=== PATIENT | male | born 1935 | race Caucasian/White ===

== ENCOUNTER 2017-01-15 14:18 | Emergency (ER) | payer MEDICARE, BC ==
[~2017-01-15] VITALS: Ht 182.9 cm; Wt 77.1 kg
[~2017-01-15 14:18] MED LIST: AMLO1TAB2 PO; ASCO100T6 PO; ASP81TEC PO; BIOT25006 PO; BIOT5TAB PO; CALC1TAB38 PO; CIPR500T78 PO; GABA600T2 PO; GLUC500C2 PO; HYDR1TAB86 PO; INSU100C SQ; LEVO88TA26 PO; LOSA1TAB23 PO; MAGN200T3 PO; MELA1TAB11 PO; MTP50T PO; MULT-608 PO; OMEG1CAP51 PO; PHEN200T27 PO; SAW160CA9 PO; THIO50CA PO; VIT1CAPS16 PO; ZINC50TA49 PO; fentaNYL INJECTION 100 MCG/2 ML AMP ONE
[2017-01-15] MEDS: fentaNYL INJECTION 100 MCG/2 ML AMP IVP PRN ×6 (14:26→15:20)
--- NOTE | 2017-01-15 14:32 | ED Trauma-Multisystem ---
General Stated Complaint: FALL FROM TREE Source of Information: Patient, EMS Exam Limitations: No Limitations (CHALINO LUONG APRN) History of Present Illness Time Seen by Provider: 14:28 Initial Comments To ER per EMS from home where he was trimming trees. He sustained a fall from about 15 feet of height while trimming trees. This was an unwitnessed fall. He was able to call 911 for help however. EMS initially found to be hypoglycemic with a blood sugar of 53, blood pressure of 80s over 40 and a heart rate of 40. He was very diaphoretic (the outdoor temperature is 93 degrees however). He was placed in a rigid cervical collar, given one amp of D50, loaded onto spine board and brought to the emergency room. Upon arrival to ER blood pressure 147/75, heart rate 65 sinus, alert and oriented and he complains of severe pain to his left shoulder. Occurred: Just Prior to Arrival Severity: Moderate Pain/Injury Location: Head, Upper Extremity, Neck Method of Injury: Fall Modifying Factors: No Movement Loss of Consciousness: Unsure Associated Symptoms (Fall): No Abdominal Pain, No Chest Pain, No Confusion, No Dizziness, No Headache, No Neck Pain (CHALINO LUONG APRN) Allergies and Home Medications Allergies Coded Allergies: No Known Drug Allergies (Unverified , 09/08/11) Home Medications Alpha Lipoic Acid 50 Mg Capsule, 600 MG PO DAILY, (Reported) Amlodipine/Atorvast Nam 1 Each Tablet, 1 EACH PO DAILY, (Reported) Ascorbic Acid 100 Mg Tablet, 100 MG PO DAILY, (Reported) Aspirin 81 Mg Tabec, 81 MG PO DAILY, (Reported) Biotin 5 Mg Tablet, 5 MG PO DAILY, (Reported) Calcium Citrate/Vitamin D3 1 Each Tablet, 1 EACH PO DAILY, (Reported) Gabapentin 600 Mg Tablet, 600 MG PO DAILY, (Reported) Glucosamine Sulfate 500 Mg Capsule, 500 MG PO DAILY, (Reported) Insulin Human Lispro 100 U/Ml Cartridge, 35-40 SQ DAILY, (Reported) 34-40 UNITS PER PUMP Levothyroxine Sodium 88 Mcg Tablet, 88 MCG PO DAILY, (Reported) Losartan/Hydrochlorothiazide 1 Each Tablet, 1 EACH PO DAILY, (Reported) Magnesium 200 Mg Tablet, 400 MG PO DAILY, (Reported) Metoprolol Tartrate 50 Mg Tablet, 50 MG PO DAILY, (Reported) Multivitamins 1 Tab Tablet, 1 TAB PO DAILY, (Reported) [place]-3 Fatty Acids/Fish Oil 1 Each Capsule, 1,000 MG PO DAILY, (Reported) Pyridoxine/Melatonin 1 Tab Tablet, 3 MG PO HS, (Reported) Saw [place] Xtr/Zinc Picolin 1 Each Capsule, 2 EACH PO DAILY, (Reported) Vit B12/Fa/Pyridoxine Hcl/Aa15 1 Each Capsule, 1 EACH PO, (Reported) Zinc Amino Acid Chelate 50 Mg Tablet, 50 MG PO DAILY, (Reported) Constitutional: see HPI Eyes: No Symptoms Reported Ears: No Symptoms Reported Nose: No Symptoms Reported Mouth: No Symptoms Reported Throat: No Symptoms to Report Respiratory: no symptoms reported Genitourinary: no symptoms reported Musculoskeletal: see HPI Skin: no symptoms reported Psychiatric/Neurological: No Symptoms Reported (CHALINO LUONG APRN) Past Lkjfixu-Kskexi-Bpdpps Hx Immunizations Up To Date Tetanus Booster (TDap): Less than 5yrs PED Vaccines UTD: No Date of Pneumonia Vaccine: Dec 13, 2010 (CHALINO LUONG APRN) Surgeries HX Surgeries: Yes (CHALINO LUONG APRN) Respiratory Hx Respiratory Disorders: No (CHALINO LUONG APRN) Cardiovascular Hx Cardiac Disorders: No (CHALINO LUONG APRN) Neurological Hx Neurological Disorders: No (CHALINO LUONG APRN) Reproductive System Hx Reproductive Disorders: No Sexually Transmitted Disease: No (CHALINO LUONG APRN) Genitourinary Hx Genitourinary Disorders: Yes (RIGHT RENAL TRAUMA) (CHALINO LUONG APRN) Gastrointestinal Hx Gastrointestinal Disorders: No (CHALINO LUONG APRN) Musculoskeletal Hx Musculoskeletal Disorders: No (CHALINO LUONG APRN) Endocrine Hx Endocrine Disorders: Yes Endocrine Disorders: Diabetes, Insulin dep, Hypothyroidsim (CHALINO LUONG APRN) HEENT HX ENT Disorders: Yes HEENT Disorders: Cataract (CHALINO LUONG APRN) Cancer Hx Cancer: No (CHALINO LUONG APRN) Psychosocial Hx Psychiatric Problems: No (CHALINO LUONG APRN) Integumentary HX Skin/Integumentary Disorder: No (CHALINO LUONG APRN) Blood Transfusions Hx Blood Disorders: No Adverse Reaction to a Blood Tr: No (CHALINO LUONG APRN) Family Medical History Family Medial History: Chest pain Family history: Alzheimer's disease 03 MOTHER, Onset:60 years & older Family history: Cardiovascular disease 03 FATHER (father heart attack at 85) 03 MOTHER (pacemaker at 75) Family history: Hypertension 03 FATHER (80) Myocardial infarction 03 FATHER ( at 85 with heart attack) (CHALINO LUONG APRN) Family Medial History: Chest pain Family history: Alzheimer's disease 03 MOTHER, Onset:60 years & older Family history: Cardiovascular disease 03 FATHER (father heart attack at 85) 03 MOTHER (pacemaker at 75) Family history: Hypertension 03 FATHER (80) Myocardial infarction 03 FATHER ( at 85 with heart attack) (PATRICIA GILL) Physical Exam General Appearance: No Apparent Distress, WD/WN, Moderate Distress (moaning in pain secondary to left shoulder pain.) Head: No Evidence of Injury, Other (abrasions to the left side of the forehead and left cheek. External auditory canals are normal in appearance without blood. There is no hemotympanum noted. There are no leos signs. He is in a rigid cervical collar. Denies neck pack upon palpation but reports tingling in both hands. ) Eyes: Bilateral Eye EOMI, Bilateral Eye Normal Inspection, Bilateral Eye PERRL Ears, Nose, Throat: Hearing Grossly Normal, Other (ecchymosis to left side of the forehead and cheek) Neck: Full Range of Motion, Normal Inspection, Other (he is in a rigid cervical collar but upon palpation does not report any midline cervical spine pain.) Cardiovascular: Regular Rate, Rhythm, Normal Peripheral Pulses Respiratory: No Accessory Muscle Use, No Respiratory Distress, Other (lungs sounds are slightly diminished on the left, left lateral chest wall is tender to palpation) Gastrointestinal: Normal Bowel Sounds, Non Tender, Soft Extremity: Other (moves all extremities) Neurologic/Psychiatric: Alert, Oriented x3, Other (moaning but alert and oriented to person place time and situation. GCS 15.) Skin: Normal Color, Ecchymosis (CHALINO LUONG APRN) Longs Coma Score Best Eye Response (Roselyn): (4) Open Spontaneously Best Verbal Response (Rsoelyn): (5) Oriented Best Motor Response (Longs): (6) Obeys Commands Longs Total: 15 (CHALINO LUONG APRN) Progress/Results/Core Measures Results/Orders Lab Results Laboratory Tests Test 7/10/17 14:30 Range/Units White Blood Count 7.2 4.3-11.0 10^3/uL Red Blood Count 3.49 L 4.35-5.85 10^6/uL Hemoglobin 10.9 L 13.3-17.7 G/DL Hematocrit 32 L 40-54 % Mean Corpuscular Volume 93 80-99 FL Mean Corpuscular Hemoglobin 31 25-34 PG Mean Corpuscular Hemoglobin Concent 34 32-36 G/DL Red Cell Distribution Width 13.4 10.0-14.5 % Platelet Count 166 130-400 10^3/uL Mean Platelet Volume 9.9 7.4-10.4 FL Prothrombin Time 14.1 12.2-14.7 SEC INR Comment 1.1 0.8-1.4 Activated Partial Thromboplast Time 24 24-35 SEC Sodium Level 139 135-145 MMOL/L Potassium Level 4.3 3.6-5.0 MMOL/L Chloride Level 106 98-107 MMOL/L Carbon Dioxide Level 26 21-32 MMOL/L Anion Gap 7 5-14 MMOL/L Blood Urea Nitrogen 31 H 7-18 MG/DL Creatinine 1.09 0.60-1.30 MG/DL Estimat Glomerular Filtration Rate > 60 BUN/Creatinine Ratio 28 Glucose Level 231 H 70-105 MG/DL Calcium Level 8.6 8.5-10.1 MG/DL Total Bilirubin 0.5 0.1-1.0 MG/DL Direct Bilirubin 0.1 0.0-0.3 MG/DL Indirect Bilirubin 0.4 MG/DL Aspartate Amino Transf (AST/SGOT) 36 H 5-34 U/L Alanine Aminotransferase (ALT/SGPT) 31 0-55 U/L Alkaline Phosphatase 41 40-136 U/L Total Protein 5.5 L 6.4-8.2 GM/DL Albumin 3.3 3.2-4.5 GM/DL (PATRICIA GILL) My Orders Orders - PATRICIA GILL Fentanyl Injection (Sublimaze Injection (01/15/17 14:18) Fentanyl Injection (Sublimaze Injection (01/15/17 15:00) Fentanyl Injection (Sublimaze Injection (01/15/17 15:15) (PATRICIA GILL) Medications Given in ED Current Medications Medications Dose Ordered Sig/German Route Start Time Stop Time Status Last Admin Dose Admin Diphtheria/ Tetanus/Acell Pertussis 0.5 ml ONCE ONCE IM 01/15/17 15:30 01/15/17 15:31 DC 01/15/17 15:28 0.5 ML Fentanyl Citrate 50 mcg PRN PRN IVP 01/15/17 15:00 01/15/17 15:20 25 MCG (PATRICIA GILL) Progress Note : Time: 15:38 Progress Note I saw and examined patient alongside his headaches. I agree with his assessment and his plan of care to include transfer to a facility where he would have access neurosurgery. (PATRICIA GILL) Departure Communication Progress Notes After discussing with Dr. Apple and Dr. Owen. Patient will be transferred to [facility] in [place]. Emergency room Dr. Carter has accepted. (CHALINO LUONG APRN) Impression Impression: Primary Impression: C1 cervical fracture Additional Impression: Blunt trauma of multiple sites Disposition: 02 XFER SHT-TRM HOSP Condition: Critical Departure-Patient Inst. Referrals: VERENA DAVIS MD (PCP/Family) Primary Care Physician CHALINO LUONG APRN Jan 15, 2017 14:31 PATRICIA GILL Jan 15, 2017 15:38
[2017-01-15 14:40] LABS: MEAN PLATELET VOLUME 9.9 FL (7.4-10.4); RED BLOOD COUNT 3.49 10^6/uL (4.35-5.85); RED CELL DISTRIBUTION WIDTH 13.4 % (10.0-14.5); WHITE BLOOD COUNT 7.2 10^3/uL (4.3-11.0)
[2017-01-15] MEDS ORDERED: fentaNYL INJECTION 100 MCG/2 ML AMP ONE (14:42)
--- NOTE | 2017-01-15 14:42 | Diagnostic Imaging Report ---
EXAMINATION: Supine AP view of the chest. INDICATION: Fall. FINDINGS: There is mild interstitial thickening, favored to be chronic. No focal airspace opacity. The heart size is normal. No effusion or pneumothorax. The mediastinum and jose appear unremarkable. IMPRESSION: No acute process. Dictated by: Dictated on workstation # [id number]
--- NOTE | 2017-01-15 14:44 | Diagnostic Imaging Report ---
INDICATION: Pelvic pain post fall. AP pelvis obtained at 2:32 p.m. No fracture or acute bony abnormality is seen. IMPRESSION: Negative pelvis. Dictated by: Dictated on workstation # [id number]
[2017-01-15 14:58] LABS: ALANINE AMINOTRANSFERASE 31 U/L (0-55); ALBUMIN 3.3 GM/DL (3.2-4.5); ANION GAP 7 MMOL/L (5-14); ASPARTATE AMINO TRANSFERASE 36 U/L (5-34); BILIRUBIN,DIRECT 0.1 MG/DL (0.0-0.3); BILIRUBIN,INDIRECT 0.4 MG/DL; BILIRUBIN,TOTAL 0.5 MG/DL (0.1-1.0); BLOOD UREA NITROGEN 31 MG/DL (7-18); BUN/CREATININE RATIO 28; CALCIUM 8.6 MG/DL (8.5-10.1); CARBON DIOXIDE 26 MMOL/L (21-32); CHLORIDE 106 MMOL/L (98-107); CREATININE SERUM 1.09 MG/DL (0.60-1.30); GFR ESTIMATED > 60; GLUCOSE 231 MG/DL (70-105); POTASSIUM 4.3 MMOL/L (3.6-5.0); SODIUM 139 MMOL/L (135-145); TOTAL PROTEIN 5.5 GM/DL (6.4-8.2)
[2017-01-15 15:08] LABS: INR 1.1 (0.8-1.4); PROTHROMBIN TIME PATIENT 14.1 SEC (12.2-14.7)
[2017-01-15] MEDS ORDERED: fentaNYL INJECTION 100 MCG/2 ML AMP IVP PRN (15:15)
--- NOTE | 2017-01-15 15:25 | Diagnostic Imaging Report ---
TECHNIQUE: Two views of the left shoulder. INDICATION: Trauma. FINDINGS: There are multiple minimally displaced lateral upper left rib fractures seen. There is cortical irregularity along the lower aspect of the left scapula which, in correlation with the CT scan, is confirmed to be a nondisplaced fracture. The upper aspect of the scapula as well as the acromioclavicular and glenohumeral joints appear unremarkable. IMPRESSION: Fractures of multiple upper lateral left ribs and the lower aspect of the left scapula with no significant displacement. Dictated by: Dictated on workstation # [id number]
--- NOTE | 2017-01-15 15:27 | Consultation ---
History of Present Illness History of Present Illness Patient Consulted On(eulogio/time) 01/15/17 15:20 Time Seen by Provider: 14:20 History of Present Illness This is a type I trauma activation. Pt fell appx 12-15 feet off of ladder. He is unsure of LOC. Complained of pain in left shoulder and chest. Apparently family found limb on top of him. To ER per EMS from home where he was trimming trees. He sustained a fall from about 15 feet of height while trimming trees. This was an unwitnessed fall. He was able to call 911 for help however. EMS initially found to be hypoglycemic with a blood sugar of 53, hypotensive with blood pressure of 80s over 40 and a heart rate of 40. He was very diaphoretic (the outdoor temperature is 93 degrees however). He was placed in a rigid cervical collar, given one amp of D50, loaded onto spine board and brought to the emergency room. Upon arrival to ER blood pressure 147/75, heart rate 65 sinus, alert and oriented and he complains of severe pain to his left shoulder. Occurred: Just Prior to Arrival Severity: Moderate Pain/Injury Location: Head, Upper Extremity, Neck Method of Injury: Fall Modifying Factors: No Movement Loss of Consciousness: Unsure Associated Symptoms (Fall): No Abdominal Pain, No Chest Pain, No Confusion, No Dizziness, No Headache, No Neck Pain First BP in ED was 147/75. Examined and went straight to CT. CXR and Pelvis done in ED were grossly negative, no radiology reading yet. Allergies and Home Medications Allergies Coded Allergies: No Known Drug Allergies (Unverified , 09/08/11) Home Medications Alpha Lipoic Acid 50 Mg Capsule, 600 MG PO DAILY, (Reported) Amlodipine/Atorvast Nam 1 Each Tablet, 1 EACH PO DAILY, (Reported) Ascorbic Acid 100 Mg Tablet, 100 MG PO DAILY, (Reported) Aspirin 81 Mg Tabec, 81 MG PO DAILY, (Reported) Biotin 5 Mg Tablet, 5 MG PO DAILY, (Reported) Calcium Citrate/Vitamin D3 1 Each Tablet, 1 EACH PO DAILY, (Reported) Gabapentin 600 Mg Tablet, 600 MG PO DAILY, (Reported) Glucosamine Sulfate 500 Mg Capsule, 500 MG PO DAILY, (Reported) Insulin Human Lispro 100 U/Ml Cartridge, 35-40 SQ DAILY, (Reported) 34-40 UNITS PER PUMP Levothyroxine Sodium 88 Mcg Tablet, 88 MCG PO DAILY, (Reported) Losartan/Hydrochlorothiazide 1 Each Tablet, 1 EACH PO DAILY, (Reported) Magnesium 200 Mg Tablet, 400 MG PO DAILY, (Reported) Metoprolol Tartrate 50 Mg Tablet, 50 MG PO DAILY, (Reported) Multivitamins 1 Tab Tablet, 1 TAB PO DAILY, (Reported) [place]-3 Fatty Acids/Fish Oil 1 Each Capsule, 1,000 MG PO DAILY, (Reported) Pyridoxine/Melatonin 1 Tab Tablet, 3 MG PO HS, (Reported) Saw [place] Xtr/Zinc Picolin 1 Each Capsule, 2 EACH PO DAILY, (Reported) Vit B12/Fa/Pyridoxine Hcl/Aa15 1 Each Capsule, 1 EACH PO, (Reported) Zinc Amino Acid Chelate 50 Mg Tablet, 50 MG PO DAILY, (Reported) Past Lxthmnv-Holwgo-Hgyylv Hx Patient Social History Alcohol Use: Denies Use Smoking Status: Never a Smoker Recent Foreign Travel: No Contact w/Someone Who Travel: No Recent Infectious Disease Expo: No Immunizations Up To Date Tetanus Booster (TDap): Less than 5yrs PED Vaccines UTD: No Date of Pneumonia Vaccine: Dec 13, 2010 Surgeries HX Surgeries: Yes (nephrostomy tube placement, after trauma 3 yrs ago) Respiratory Hx Respiratory Disorders: No Cardiovascular Hx Cardiac Disorders: No Neurological Hx Neurological Disorders: No Reproductive System Hx Reproductive Disorders: No Sexually Transmitted Disease: No Genitourinary Hx Genitourinary Disorders: Yes (RIGHT RENAL TRAUMA) Gastrointestinal Hx Gastrointestinal Disorders: No Musculoskeletal Hx Musculoskeletal Disorders: No Endocrine Hx Endocrine Disorders: Yes Endocrine Disorders: Diabetes, Insulin dep, Hypothyroidsim HEENT HX ENT Disorders: Yes HEENT Disorders: Cataract Cancer Hx Cancer: No Psychosocial Hx Psychiatric Problems: No Integumentary HX Skin/Integumentary Disorder: No Blood Transfusions Hx Blood Disorders: No Adverse Reaction to a Blood Tr: No Family Medical History Significant Family History: CAD Over 55 Years Old, Hypertension Family Medial History: Chest pain Family history: Alzheimer's disease 03 MOTHER, Onset:60 years & older Family history: Cardiovascular disease 03 FATHER (father heart attack at 85) 03 MOTHER (pacemaker at 75) Family history: Hypertension 03 FATHER (80) Myocardial infarction 03 FATHER ( at 85 with heart attack) Review of Systems-General Constitutional: No chills, diaphoresis, dizziness, No weight loss EENTM: No blurred vision, No epistaxis, No mouth swelling, No throat swelling, No vision loss Respiratory: No cough, No hemoptysis, short of breath Cardiovascular: No chest pain, No palpitations Gastrointestinal: No constipation, No diarrhea, No hematemesis, No melena, No nausea, No vomiting Genitourinary: No dysuria, frequency, No hematuria, hesitancy Musculoskeletal: back pain, joint pain, muscle stiffness Skin: No change in color, No change in hair/nails Psychiatric/Neurological: Denies Anxiety, Denies Depressed, Denies Seizure, Denies Tingling, Denies Weakness Other hx of hypothyroid and DM. Denies any abnormal bruising or bleeding. No swollen lymph nodes Physical Exam-General Problems Physical Exam Vital Signs Capillary Refill : General Appearance: WD/WN, moderate distress, thin Eyes: Bilateral Eye EOMI, Bilateral Eye PERRL HEENT: pharynx normal, No scleral icterus (R), No scleral icterus (L) Neck: tender midline, other (in c-collar, cannot do ROM) Respiratory: lungs clear, normal breath sounds, no respiratory distress, no accessory muscle use, other (chest is tender on the left) Cardiovascular: regular rate, rhythm, no gallop, no murmur Peripheral Pulses: 4+ Carotid (R), 4+ Carotid (L), 4+ Femoral (R), 4+ Femoral ( L), 4+ Dorsalis Pedis (R), 4+ Left Dors-Pedis (L), 4+ Radial Pulses (R), 4+ Radial Pulses (L) Gastrointestinal: normal bowel sounds, soft, no organomegaly, no pulsatile mass , tenderness (diffuse) Rectal: deferred Genital/Rectal: normal genital exam, No tenderness Back: vertebral tenderness, other (pain in left shoulder, can't raise right arm without pain) Extremities: normal range of motion, no pedal edema, no calf tenderness, normal capillary refill Neurologic/Psychiatric: telegraph messenger II-XII nml as tested, no motor/sensory deficits, alert, normal mood/affect, oriented x 3 Skin: normal color, warm/dry, ecchymosis (left forehead, cheek, and over left clavicle) Lymphatic: no adenopathy (neck, axilla or groin) Data Review Labs Laboratory Tests 01/15/17 14:30: White Blood Count 7.2, Red Blood Count 3.49L, Hemoglobin 10.9L, Hematocrit 32L, Mean Corpuscular Volume 93, Mean Corpuscular Hemoglobin 31, Mean Corpuscular Hemoglobin Concent 34, Red Cell Distribution Width 13.4, Platelet Count 166, Mean Platelet Volume 9.9, Prothrombin Time 14.1, INR Comment 1.1, Activated Partial Thromboplast Time 24, Sodium Level 139, Potassium Level 4.3, Chloride Level 106, Carbon Dioxide Level 26, Anion Gap 7, Blood Urea Nitrogen 31H, Creatinine 1.09, Estimat Glomerular Filtration Rate > 60, BUN/Creatinine Ratio 28, Glucose Level 231H, Calcium Level 8.6, Total Bilirubin 0.5, Direct Bilirubin 0.1, Indirect Bilirubin 0.4, Aspartate Amino Transf (AST/SGOT) 36H, Alanine Aminotransferase (ALT/SGPT) 31, Alkaline Phosphatase 41, Total Protein 5.5L, Albumin 3.3 Assessment/Plan Assessment/Plan Assessment/Plan Trauma Type 1 activation for Hypotension, fall from appx 12-15 feet Radiology findings went over CT with radiologist (final reading not back) C1 fracture T7-8 fracture - unstable L2 fracture B/L scapula fracture Left rib fracture x 2 Pneumothorax - small, with probable pulmonary contusion and possibly hemothorax Pt needs higher level of care (Neurosurgery) is being transferred to [facility] in [place]. IVF, pain control ISATU CASH DO Jan 15, 2017 15:27
[2017-01-15] MEDS ORDERED: TETANUS,DIPTH,PERTUSS P/F (BOOSTRIX) 0.5 ML VIAL IM ONE (15:30)
[2017-01-15] MEDS ORDERED: NS IV 1000 ML 1,000 ML ONE (15:42)
--- NOTE | 2017-01-15 15:45 | Diagnostic Imaging Report ---
PROCEDURE: CT head and CT cervical spine without contrast. TECHNIQUE: Multiple contiguous axial images were obtained through the brain and cervical spine without the use of intravenous contrast. Sagittal and coronal reformations through the cervical spine were then performed. INDICATION: Fall. CT HEAD: There is no intracranial hemorrhage, edema or mass-effect. The brain parenchyma demonstrates periventricular and deep white matter hypodensities compatible with chronic microvascular ischemic changes. There is no hydrocephalus. No extra-axial fluid collection is seen. There is mild mucosal thickening along the lateral aspect of the left frontal sinus. CT CERVICAL SPINE: There is satisfactory alignment of the posterior spinal line. The vertebral body heights are preserved. There is a transverse fracture along the posterior arch of C1 with mild displacement away from the spinal canal. Anteriorly, calcification and retro-dense ligaments and soft tissues are probably degenerative. Degenerative changes at the atlantodental joint is seen with no widening of the predental space. The fracture in C1 extends on the right side to the upper outer margin of the lateral mass of C1 on the right side, otherwise the lateral masses appear intact. There is also comminuted fractures of the transverse process of T7 on the left side extending to the pars interarticularis and extending to the left C6/7 facet joint without displacement seen. There is fracture extension anteriorly towards the left foramen transversarium without a displaced fragment. In addition, there are mildly displaced fractures of the spinous processes of C4, C5 and C6 levels. IMPRESSION: CT HEAD: No intracranial hemorrhage. CT CERVICAL SPINE: 1. Mildly displaced fracture of the posterior arch of C1. 2. Nondisplaced comminuted fractures involving the left transverse process and left pars interarticularis of C7 vertebra. Alignment of the facet joints and at the posterior spinal line is preserved. 3. Mildly displaced fractures of the transverse processes of C4, C5 and C6. These findings were discussed with Dr. Apple, and Dr. Hyde by Dr. Larsen at the time of dictation. Dictated by: Dictated on workstation # [id number]
[2017-01-15] MEDS ORDERED: NS IV 1000 ML 1,000 ML IV ONE (15:47)
[2017-01-15 15:54] VITALS: BP 91/45
--- NOTE | 2017-01-15 15:58 | Diagnostic Imaging Report ---
PROCEDURE: CT chest, abdomen, and pelvis with contrast. TECHNIQUE: Multiple contiguous axial images were obtained through the chest, abdomen, and pelvis after the administration of intravenous contrast. INDICATION: Trauma. Patient fell from a tree. FINDINGS: CT chest: There is a tiny left pneumothorax. There are multiple nondisplaced fractures involving the left ribs including the posterior aspect of the second rib, lateral aspect of the third rib, posterior fourth rib, posterolateral aspect of the fifth, sixth, seventh, and eighth ribs. Some of the ribs appear to be fractured at two points such as the seventh, sixth, and fourth ribs. Also nondisplaced fracture through the inferior aspect of the left scapula and displaced fracture of the upper aspect of the body of the scapula is seen. Also fractures in the thoracic spine are noted. This includes fractures in the pedicles of T4, T5, and T6 bilaterally. At T7, there is a fracture of the pars interarticularis on the left side with significant compression fracture of about 30% of the vertebral body with mild displacement of the anterior aspect of this vertebra with minimal retropulsion into the spinal canal of the posterior wall of the vertebral body of about 3 mm. Also, the T5 vertebral body is fractured along its posterior margin with slight retropulsion and cortical step-off. Also, T8 vertebral body has a compressed fracture in its vertebral body with no fracture seen in the posterior elements. There is, however, at this level fracture of the left transverse process. There is a small hematoma seen around the thoracic spine and a tiny left hemothorax. There is normal contour and caliber of the thoracic aorta with no evidence of traumatic aortic injury. The right lung demonstrates minimal atelectasis. CT abdomen and pelvis: The liver demonstrates no active extravasation of contrast or evidence of laceration. Several subcentimeter cysts are seen. The gallbladder demonstrates no stones that are calcified and no evidence of injury. The pancreas, the spleen, and adrenals appear unremarkable. The kidneys demonstrate symmetric enhancement and contrast excretion into the renal collecting system within the kidneys. The renal pelves are dilated bilaterally, particularly on the right side with delayed excretion into the ureters and into the bladder. The urinary bladder is mildly dilated. There is no parenchymal laceration in the kidneys. The abdominal aorta is normal in caliber. No para-aortic significantly enlarged lymph nodes, hematoma, or evidence of aortic injury. No peritoneal hematoma. There is a fracture involving the anterior aspect of vertebral body L2 with slight distraction anteriorly compatible with a hyperextension mechanism. This does not appear to involve the posterior elements. No compression of the vertebral body height is seen. IMPRESSION: CT chest: 1. There are multiple thoracic spine fractures involving both the vertebral bodies, and the posterior elements at T7 and T5, fracture of vertebral body T8, and fractures of the pedicles and posterior elements involving T4 through T7 levels. There is mild retropulsion into the spinal canal at T7 and T5. There is also paravertebral and posterior mediastinal hematoma around the fractured spine levels. 2. Bilateral scapular fractures. 3. Multiple left rib fractures involving the second through the eighth left ribs. 4. Tiny left pneumothorax. 5. Tiny left hemothorax. CT abdomen and pelvis: 1. There is fracture of the anterior aspect of vertebral body L2 with mild distraction suggestive of hyperextension mechanism. No obvious involvement of the posterior elements. 2. No solid organ laceration or peritoneal hematoma seen. These findings were discussed with Dr. Apple, and Dr. Hyde by Dr. Larsen at the time of dictation. Dictated by: Dictated on workstation # [id number]
--- OUTSIDE RECORDS SUMMARY | 2017-01-16 17:57 | XMS REPORT | Continuity of Care Document ---
Author Author [facility] Address Unknown Phone Unavailable Allergies Active Description Code Type Severity Reaction Onset Reported/Identified Relationship to Patient Clinical Status Yes No Known Drug Allergies [id number] Drug Allergy Unknown N/ A 09/08/2011 Medications Problems Date Dx Coded Attending Type Code Diagnosis Diagnosed By 10/19/2011 Ot 250.00 10/19/2011 Ot 550.90 10/23/2013 JAMAAL POTTER, HOSSEIN S Ot 518.0 10/23/2013 JAMAAL POTTER, HOSSEIN S Ot 591 10/23/2013 JAMAAL POTTER, HOSSEIN S Ot 807.03 10/23/2013 JAMAAL POTTER, HOSSEIN S Ot 860.0 10/23/2013 JAMAAL POTTER, HOSSEIN S Ot 861.21 10/23/2013 JAMAAL POTTER, HOSSEIN S Ot 862.29 10/23/2013 JAMAAL POTTER, HOSSEIN S Ot 864.01 10/23/2013 JAMAAL POTTER, HOSSEIN S Ot 866.00 10/23/2013 JAMAAL POTTER, HOSSEIN S Ot E849.0 10/23/2013 JAMAAL POTTER, HOSSEIN S Ot E888.1 10/28/2013 JOSUE POTTER, DON Álvarez Ot 593.4 10/28/2013 JOSUE POTTER, DON A Ot 593.89 10/28/2013 JOSUE POTTER, DON A Ot 866.00 10/28/2013 JOSUE POTTER, DON A Ot E000.8 10/28/2013 JOSUE POTTER, DON A Ot E849.0 10/28/2013 JOSUE POTTER, DON A Ot E888.9 10/28/2013 JOSUE POTTER, DON A Ot V44.6 12/18/2013 JAMAAL POTTER, HOSSEIN S Ot 569.3 06/03/2014 FROY CERVANTES MD Ot 244.9 06/03/2014 FROY CERVANTES MD Ot 250.01 10/06/2014 Ot 272.4 05/26/2015 FROY CERVANTES MD Ot E03.9 05/26/2015 FROY CERVANTES MD Ot E10.8 09/17/2015 Ot 250.01 09/17/2015 Ot 250.01 09/17/2015 Ot 550.90 09/17/2015 Ot V72.63 09/17/2015 Ot V72.81 09/17/2015 Ot V74.8 09/17/2015 Ot 550.90 09/17/2015 Ot V64.3 09/17/2015 Ot 401.9 09/17/2015 Ot 794.31 09/17/2015 Ot V72.84 09/17/2015 Ot 401.9 09/17/2015 Ot 794.31 09/17/2015 Ot V72.81 09/17/2015 Ot 550.90 09/17/2015 Ot V72.84 09/17/2015 Ot V74.8 09/17/2015 Ot 244.9 09/17/2015 Ot 250.01 09/17/2015 Ot 272.4 09/17/2015 Ot 401.9 09/17/2015 [employer] D[employer] Ot 272.4 09/17/2015 [employer]DA [employer] D[employer] Ot 401.9 09/17/2015 FROY CERVANTES MD Ot 244.9 09/17/2015 FRYO CERVANTES MD Ot 250.01 09/17/2015 FROY CERVANTES MD Ot 244.9 09/17/2015 FROY CERVANTES MD Ot 250.01 09/17/2015 FROY CERVANTES MD Ot 401.9 09/17/2015 ARIEL POTTER, JONN May Ot 272.4 09/17/2015 FROY CERVANTES MD Ot 244.9 09/17/2015 FROY CERVANTES MD Ot 250.01 09/17/2015 FROY CERVANTES MD Ot 272.4 09/17/2015 JOSUE POTTER, DON Álvarez Ot V72.84 09/17/2015 JOSUE POTTER, DON Álvarez Ot 591 09/17/2015 JOSUE POTTER, DON A Ot 866.00 09/17/2015 JOSUE POTTER, DON Álvarez Ot E878.1 09/17/2015 PEDRO POTTER, MARCIA Z Ot 866.00 09/17/2015 PEDRO POTTER, MARCIA Z Ot E878.8 09/17/2015 JAMAAL POTTER, HOSSEIN Michlele Ot V72.84 09/17/2015 FROY CERVANTES MD Ot 250.01 09/17/2015 FROY CERVANTES MD Ot 244.9 09/17/2015 FROY CERVANTES MD Ot 250.01 09/17/2015 Ot 272.4 09/17/2015 FROY CERVANTES MD Ot E03.9 09/17/2015 FROY CERVANTES MD Ot E10.8 12/21/2015 Ot E03.8 OTHER SPECIFIED HYPOTHYROIDISM 01/05/2016 Ot E03.4 ATROPHY OF THYROID (ACQUIRED) 01/05/2016 Ot E03.8 OTHER SPECIFIED HYPOTHYROIDISM 01/05/2016 FROY CERVANTES MD Ot E10.40 TYPE 1 DIABETES MELLITUS WITH DIABETIC N 01/12/2016 Ot E03.4 ATROPHY OF THYROID (ACQUIRED) 01/12/2016 Ot E03.8 OTHER SPECIFIED HYPOTHYROIDISM 01/27/2016 FROY CERVANTES MD Ot E10.40 TYPE 1 DIABETES MELLITUS WITH DIABETIC N Procedures Results Encounters ACCT No. Visit Date/Time Discharge Status Pt. Type Provider Facility Loc./Unit Complaint [id number] 08/11/2014 10:06:01 08/11/2014 23: 59:59 [facility] Outpatient Cira Lyons [id number] 02/10/2014 11:07:00 02/10/2014 23: 59:59 [facility] Outpatient Cira Lyons [id number] 07/04/2013 16:58:49 Document Registration
== END 2017-01-15 15:54 | disposition short-term general hospital (02) ==
LOC: ER 14:18
DX: Y93.H2 Activity, gardening and landscaping; E03.9 Hypothyroidism, unspecified; S22.42XA Multiple fractures of ribs, left side, initial encounter for closed fracture; Z79.4 Long term (current) use of insulin; S12.000A Unspecified displaced fracture of first cervical vertebra, initial encounter for closed fracture; W14.XXXA Fall from tree, initial encounter; S42.102A Fracture of unspecified part of scapula, left shoulder, initial encounter for closed fracture; Z79.82 Long term (current) use of aspirin; E11.9 Type 2 diabetes mellitus without complications
CPT/HCPCS: 36415; 70450; 71010; 71260; 72125; 72170; 73030; 74177; 80048; 80076; 85027; 85610; 85730; 86850; 86900; 86901; 86920; 90471; 90715; 93041; 96374

== ENCOUNTER → 2017-02-19 | Outpatient (CLI) | payer MEDICARE, BC ==
[~2017-02-19] MED LIST changes: -fentaNYL INJECTION 100 MCG/2 ML AMP ONE
--- NOTE | 2017-02-19 12:59 | Diagnostic Imaging Report ---
Modified barium swallow. INDICATION: Difficulty swallowing. There are no prior studies available for comparison. This study was performed in the presence of the speech pathologistMónica. The patient was given barium-impregnated substances to swallow including pudding, banana, honey, nectar, and thin barium. The patient exhibited a sluggish swallowing mechanism. There was poor clearing of the barium-impregnated materials from the vallecula. The patient did exhibit transient penetration with the thin barium. There was no cough. He was able to swallow the other materials without difficulty. IMPRESSION: The swallowing mechanism is sluggish, and the patient did exhibit transient penetration with the thin barium. There is no evidence for aspiration, however. Dictated by: Dictated on workstation # [id number]
== END ==
LOC: RAD 10:07
PROVIDERS: ATTEND Family Medicine
DX: R13.11 Dysphagia, oral phase (principal)
CPT/HCPCS: 74230

== ENCOUNTER → 2018-04-03 | Outpatient (CLI) | payer MEDICARE ==
[2018-04-03 07:46] LABS: ALANINE AMINOTRANSFERASE 30 U/L (0-55); ALBUMIN 4.1 GM/DL (3.2-4.5); ALKALINE PHOSPHATASE 63 U/L (40-136); BILIRUBIN,TOTAL 0.4 MG/DL (0.1-1.0); BUN/CREATININE RATIO 34; CALCIUM 9.5 MG/DL (8.5-10.1); CARBON DIOXIDE 28 MMOL/L (21-32); CHLORIDE 101 MMOL/L (98-107); CHOLESTEROL 161 MG/DL (< 200); CREATININE SERUM 0.86 MG/DL (0.60-1.30); GFR ESTIMATED > 60; GLUCOSE 183 MG/DL (70-105); HDL CHOLESTEROL 58 MG/DL (40-60); POTASSIUM 4.5 MMOL/L (3.6-5.0); SODIUM 137 MMOL/L (135-145); TRIGLYCERIDES 73 MG/DL (<150); VLDL CHOLESTEROL 15 MG/DL (5-40)
== END ==
LOC: LAB 07:12
PROVIDERS: ATTEND Internal Medicine
DX: E10.8 Type 1 diabetes mellitus with unspecified complications (principal); E78.2 Mixed hyperlipidemia; E03.9 Hypothyroidism, unspecified
CPT/HCPCS: 36415; 80053; 80061; 84443

== ENCOUNTER → 2019-03-06 | Outpatient (CLI) | payer MEDICARE ==
[2019-03-06 10:31] LABS: FREE T4 (FREE THYROXINE) 1.11 NG/DL (0.70-1.48)
== END ==
LOC: LAB 09:25
PROVIDERS: ATTEND Family Medicine
DX: E03.9 Hypothyroidism, unspecified (principal)
CPT/HCPCS: 36415; 84439; 84443

== ENCOUNTER → 2020-03-22 | Outpatient (CLI) | payer MEDICARE | LOC: CARD 08:38 | PROVIDERS: ATTEND Family Medicine | DX: I08.0 Rheumatic disorders of both mitral and aortic valves (principal) | CPT/HCPCS: 93306 ==

== ENCOUNTER → 2020-04-19 | Outpatient (CLI) | payer MEDICARE, BC | LOC: LABNPT 05:29 | PROVIDERS: ATTEND Internal Medicine Gastroenterology | DX: Z01.812 Encounter for preprocedural laboratory examination (principal); Z20.828 Contact with and (suspected) exposure to other viral communicable diseases | CPT/HCPCS: 87635 ==

== ENCOUNTER → 2020-04-26 | Outpatient (CLI) | payer MEDICARE ==
[~2020-04-26] MED LIST changes: +HOLD METFORMIN - RECEIVED CONTRAST 20 ML VIAL IV SCH; +IOHEXOL 350 MG/ML 100 ML (OMNIPAQUE 350) VIAL IV ONE; +NS 100 ML (IVPB) BAG IV ONE
--- NOTE | 2020-04-26 09:06 | Diagnostic Imaging Report ---
PROCEDURE: CT abdomen and pelvis with contrast. TECHNIQUE: Multiple contiguous axial images were obtained through the abdomen and pelvis after administration of intravenous contrast. Auto Exposure Controls were utilized during the CT exam to meet ALARA standards for radiation dose reduction. All CT scans use one or more of the following dose optimizing techniques: automated exposure control, MA and/or KvP adjustment based on patient size and exam type or iterative reconstruction. INDICATION: Hernia repair. Compared with abdominal pelvic CT 01/15/2017. FINDINGS: Despite performing serial delayed images, there is only a minimal amount of intraluminal contrast media within the urinary bladder. No visualized intrauterine or extraperitoneal extravasation. 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 Dilatation of the left extrarenal pelvis may be slightly increased from prior. The left calyces themselves are nondilated. There is no ada hydronephrosis on the left. There is no free air. There is no fluid collection. There is a cyst in the right hepatic lobe. No acute hepatobiliary abnormality. Spleen, adrenals and pancreas unremarkable. No abdominal wall fluid collection. No viscus herniation. Benign calcified granulomata in the lung bases noted. No acute osseous pathology. IMPRESSION: 1. Chronic right hydronephrosis likely reflects stenosis at the UPJ this is stable. There is mild dilatation of the left extrarenal pelvis without calyceal distention this is not convincingly changed. Trace contrast in the bladder lumen without demonstrated extravasation. 2. No fluid collection or abdominal wall defect. No abscess or hematoma. Dictated by: Dictated on workstation # [id number]
== END ==
LOC: RAD 07:44
PROVIDERS: ATTEND Internal Medicine Gastroenterology
DX: K30 Functional dyspepsia (principal); N28.89 Other specified disorders of kidney and ureter; N13.30 Unspecified hydronephrosis; R19.7 Diarrhea, unspecified; R63.4 Abnormal weight loss; R19.8 Other specified symptoms and signs involving the digestive system and abdomen
CPT/HCPCS: 74177

== ENCOUNTER → 2022-09-18 | Outpatient (CLI) | payer MEDICARE ==
[~2022-09-18] MED LIST changes: -HOLD METFORMIN - RECEIVED CONTRAST 20 ML VIAL IV SCH; -IOHEXOL 350 MG/ML 100 ML (OMNIPAQUE 350) VIAL IV ONE; -NS 100 ML (IVPB) BAG IV ONE
--- NOTE | 2022-09-18 16:15 | Diagnostic Imaging Report ---
EXAMINATION: Right rib radiographs, 3 views. COMPARISON: Chest radiographs October 12, 2013. HISTORY: 87-year-old male, fall. Right rib pain. FINDINGS: There is no identified right rib fracture. There is no identified pneumothorax or pleural effusion. There is spinal hardware. There is an inferior vena cava filter noted. IMPRESSION: No identified right-sided rib fracture. Dictated by: Dictated on workstation # [id number]
== END ==
LOC: RAD 13:13
PROVIDERS: ATTEND Family Medicine
DX: R07.81 Pleurodynia (principal)
CPT/HCPCS: 71100

== ENCOUNTER 2023-05-06 10:59 | Observation (INO) | payer MEDICARE ==
[~2023-05-06] VITALS: Ht 182 cm; Wt 67.0 kg
[2023-05-06 11:26] LABS: BASOPHILS % (AUTO) 1 % (0-10); EOSINOPHILS # (AUTO) 0.1 10^3/uL (0.0-0.3); EOSINOPHILS % (AUTO) 2 % (0-10); HEMATOCRIT 34 % (40-54); HEMOGLOBIN 11.2 g/dL (13.3-17.7); LYMPHOCYTES # (AUTO) 1.3 10^3/uL (1.0-4.0); LYMPHOCYTES % (AUTO) 23 % (12-44); MEAN CORPUSCULAR HEMOGLOBIN 31 pg (25-34); MEAN CORPUSCULAR HGB CONC 33 g/dL (32-36); MEAN CORPUSCULAR VOLUME 95 fL (80-99); MONOCYTES # (AUTO) 0.5 10^3/uL (0.0-1.0); MONOCYTES % (AUTO) 8 % (0-12); NEUTROPHILS # (AUTO) 3.8 10^3/uL (1.8-7.8); NEUTROPHILS % (AUTO) 66 % (42-75); PLATELET COUNT 257 10^3/uL (130-400); WHITE BLOOD COUNT 5.8 10^3/uL (4.3-11.0)
--- NOTE | 2023-05-06 11:30 | ED Chest Pain ---
General Chief Complaint: Chest Pain Stated Complaint: CHEST PAIN Source: patient, EMS Exam Limitations: no limitations History of Present Illness Date Seen by Provider: May 06, 2023 Time Seen by Provider: 11:05 Initial Comments Patient is an 87-year-old male who presents to the emergency department today with a chief complaint of substernal chest pain while at taoism this morning. He was standing when he had sudden onset of symptoms within the last 30 minutes to an hour prior to arrival. He had accompanying shortness of breath and profuse diaphoresis. Apparently people around him noticed him sweating and called the ambulance. He had full-strength aspirin and 2 sublingual nitroglycerin per EMS prior to arrival that completely alleviated his symptoms. He did not get nauseated. The pain did not radiate. He has no smoking history. He is a diabetic on insulin. He has a history of a remote stress test by Dr. Parks many years ago and did not require cardiac catheterization. He does state that over the last couple of months he has had increasing shortness of breath with minimal exertion. He has had a "cold" over the last couple of days. No fevers, chills, productive cough. Timing/Duration: 1 hour Severity/Quality: moderate, pressure, tightness Location: central Radiation: no radiation Activities at Onset: other (standing in taoism) ASA po CUB REPORTER: Yes NTG SL CUB REPORTER: Yes (resolved pain) Associated Symptoms: diaphoresis, shortness of breath, weakness Allergies and Home Medications Allergies Coded Allergies: No Known Drug Allergies (Unverified , 09/08/11) Patient Home Medication List Home Medication List Reviewed: Yes Alpha Lipoic Acid (Alpha-Lipoic Acid) 50 Mg Capsule, 600 MG PO DAILY, (Reported) Entered as Reported by: REESE SANCHEZ on 09/08/11904 Amlodipine/Atorvast Nam (Caduet 10 Mg-10 Mg Tablet) 1 Each Tablet, 1 EACH PO DAILY, (Reported) Entered as Reported by: REESE SANCHEZ on 09/08/11904 Ascorbic Acid (Vitamin C) 100 Mg Tablet, 100 MG PO DAILY, (Reported) Entered as Reported by: TRI SCHULTZ on 12/18/13 0744 Aspirin (Aspirin Ec 81 Mg) 81 Mg Tabec, 81 MG PO DAILY, (Reported) Entered as Reported by: REESE SANCHEZ on 09/08/11904 Biotin (Biotin) 5 Mg Tablet, 5 MG PO DAILY, (Reported) Entered as Reported by: TRI SCHULTZ on 12/18/13741 Calcium Citrate/Vitamin D3 (Citracal + D Caplet) 1 Each Tablet, 1 EACH PO DAILY, (Reported) Entered as Reported by: REESE SANCHEZ on 09/08/11904 Gabapentin (Neurontin) 600 Mg Tablet, 600 MG PO DAILY, (Reported) Entered as Reported by: REESE SANCHEZ on 09/08/11904 Glucosamine Sulfate (Glucosamine) 500 Mg Capsule, 500 MG PO DAILY, (Reported) Entered as Reported by: TRI SCHULTZ on 12/18/13741 Insulin Human Lispro (Humalog Cartridge) 100 U/Ml Cartridge, 35-40 SQ DAILY, (Reported) Entered as Reported by: REESE SANCHEZ on 09/08/11904 Levothyroxine Sodium (Synthroid) 88 Mcg Tablet, 88 MCG PO DAILY, (Reported) Entered as Reported by: REESE SANCHEZ on 09/08/11904 Losartan/Hydrochlorothiazide (Losartan-Hctz 100-25 Mg Tab) 1 Each Tablet, 1 EACH PO DAILY, (Reported) Entered as Reported by: REESE SANCHEZ on 09/08/11904 Magnesium (Magnesium Oxide) 200 Mg Tablet, 400 MG PO DAILY, (Reported) Entered as Reported by: REESE SANCHEZ on 09/08/11904 Metoprolol Tartrate (Metoprolol Tartrate 50 Mg) 50 Mg Tablet, 50 MG PO DAILY, (Reported) Entered as Reported by: REESE SANCHEZ on 09/08/11904 Multivitamins (Multiple Vitamin) 1 Tab Tablet, 1 TAB PO DAILY, (Reported) Entered as Reported by: REESE SANCHEZ on 09/08/11904 [place]-3 Fatty Acids/Fish Oil (Fish Oil 1,000 Mg Softgel) 1 Each Capsule, 1,000 MG PO DAILY, (Reported) Entered as Reported by: REESE SANCHEZ on 09/08/11904 Pyridoxine/Melatonin (Melatonin 3 Mg Tablet) 1 Tab Tablet, 3 MG PO HS, (Report ed) Entered as Reported by: REESE SANCHEZ on 09/08/11904 Saw [place] Xtr/Zinc Picolin (Saw [place] 80 Mg Capsule) 1 Each Capsule, 2 EACH PO DAILY, (Reported) Entered as Reported by: REESE SANCHEZ on 09/08/11 0905 Vit B12/Fa/Pyridoxine Hcl/Aa15 (Glycotrol Capsule) 1 Each Capsule, 1 EACH PO, (Reported) Entered as Reported by: TRI SCHULTZ on 12/18/13 0742 Zinc Amino Acid Chelate (Zinc) 50 Mg Tablet, 50 MG PO DAILY, (Reported) Entered as Reported by: TRI SCHULTZ on 12/18/13 0742 Review of Systems Review of Systems Constitutional: see HPI EENTM: Other ("cold symptoms") Respiratory: Shortness of Air Cardiovascular: Chest Pain Genitourinary: No Symptoms Reported Musculoskeletal: no symptoms reported Skin: no symptoms reported Past Bqcobqe-Ypzjgk-Azaoex Hx Patient Social History Tobacco Use?: No Use of E-Cig and/or Vaping dev: No Substance use?: No Alcohol Use?: No Pt feels they are or have been: No Immunizations Up To Date Tetanus Booster (TDap): Less than 5yrs PED Vaccines UTD: No Influenza Vaccine Up-to-Date: No; Not Current Seasonal Allergies Seasonal Allergies: No Past Medical History Surgery/Hospitalization HX: TONSILS HTN Surgeries: Yes (HERNIA, RT SHOULDER, TOES) Orthopedic, Tonsillectomy Respiratory: No Cardiac: Yes Hypertension Neurological: No Reproductive Disorders: No Sexually Transmitted Disease: No Genitourinary: No Gastrointestinal: No Musculoskeletal: No Endocrine: Yes (INSULIN PUMP) Diabetes, Insulin dep, Hypothyroidsim Cataract Cancer: No Psychosocial: No Integumentary: No Blood Disorders: No Adverse Reaction/Blood Tranf: No Family Medical History Chest pain Family history: Alzheimer's disease 03 MOTHER, Onset:60 years & older Family history: Cardiovascular disease 03 FATHER (father heart attack at 85) 03 MOTHER (pacemaker at 75) Family history: Hypertension 03 FATHER (80) Myocardial infarction 03 FATHER ( at 85 with heart attack) CAD Over 55 Years Old, Hypertension Physical Exam Vital Signs Vital Signs - First Documented 05/06/23 11:16 Temp 35.0 Pulse 48 Resp 13 B/P (MAP) 124/72 (89) Pulse Ox 98 O2 Delivery Room Air Capillary Refill : Height, Weight, BMI Height: 6'0" Weight: 170lbs. oz. 77.282588hz; 23.05 BMI Method:Estimated General Appearance: No Apparent Distress, Thin, Other (appears slightly jaundiced) HEENT: Scleral Icterus (L), Scleral Icterus (R) (very mild) Respiratory: Lungs Clear, Normal Breath Sounds, No Accessory Muscle Use, No Respiratory Distress Cardiovascular: Regular Rate, Rhythm, Normal Peripheral Pulses Gastrointestinal: Non Tender ((voluntarily guards)), Soft Extremity: Normal Capillary Refill, Normal Inspection, Normal Range of Motion Neurologic/Psychiatric: Alert, Oriented x3, No Motor/Sensory Deficits, Normal Mood/Affect Skin: Warm/Dry, Pallor ((mild jaundice?)) Progress/Results/Core Measures Results/Orders Lab Results Laboratory Tests Test 05/06/23 11:05 05/06/23 11:15 Range/Units White Blood Count 5.8 4.3-11.0 10^3/uL Red Blood Count 3.61 L 4.30-5.52 10^6/uL Hemoglobin 11.2 L 13.3-17.7 g/dL Hematocrit 34 L 40-54 % Mean Corpuscular Volume 95 80-99 fL Mean Corpuscular Hemoglobin 31 25-34 pg Mean Corpuscular Hemoglobin Concent 33 32-36 g/dL Red Cell Distribution Width 13.8 10.0-14.5 % Platelet Count 257 130-400 10^3/uL Mean Platelet Volume 10.0 9.0-12.2 fL Immature Granulocyte % (Auto) 0 % Neutrophils (%) (Auto) 66 42-75 % Lymphocytes (%) (Auto) 23 12-44 % Monocytes (%) (Auto) 8 0-12 % Eosinophils (%) (Auto) 2 0-10 % Basophils (%) (Auto) 1 0-10 % Neutrophils # (Auto) 3.8 1.8-7.8 10^3/uL Lymphocytes # (Auto) 1.3 1.0-4.0 10^3/uL Monocytes # (Auto) 0.5 0.0-1.0 10^3/uL Eosinophils # (Auto) 0.1 0.0-0.3 10^3/uL Basophils # (Auto) 0.0 0.0-0.1 10^3/uL Immature Granulocyte # (Auto) 0.0 0.0-0.1 10^3/uL Prothrombin Time 14.2 12.2-14.7 SEC INR Comment 1.1 0.8-1.4 Activated Partial Thromboplast Time 23 L 24-35 SEC Sodium Level 136 135-145 MMOL/L Potassium Level 4.4 3.6-5.0 MMOL/L Chloride Level 100 98-107 MMOL/L Carbon Dioxide Level 26 21-32 MMOL/L Anion Gap 10 5-14 MMOL/L Blood Urea Nitrogen 29 H 7-18 MG/DL Creatinine 1.16 0.60-1.30 MG/DL Estimat Glomerular Filtration Rate 62 BUN/Creatinine Ratio 25 Glucose Level 170 H 70-105 MG/DL Calcium Level 9.2 8.5-10.1 MG/DL Corrected Calcium 9.4 8.5-10.1 MG/DL Magnesium Level 2.0 1.6-2.4 MG/DL Total Bilirubin 0.4 0.1-1.0 MG/DL Aspartate Amino Transf (AST/SGOT) 14 5-34 U/L Alanine Aminotransferase (ALT/SGPT) 17 0-55 U/L Alkaline Phosphatase 54 40-136 U/L Myoglobin 102.5 H 10.0-92.0 NG/ML Troponin I < 0.028 <0.028 NG/ML Total Protein 6.8 6.4-8.2 GM/DL Albumin 3.8 3.2-4.5 GM/DL Glucometer 147 H 70-110 MG/DL My Orders Orders - ELSA JANSEN MD Ekg Tracing (05/06/23 11:12) Cbc And Automated Diff (05/06/23 11:21) Magnesium (05/06/23 11:21) Chest 1 View, Ap/Pa Only (05/06/23 11:21) Comprehensive Metabolic Panel (05/06/23 11:21) Myoglobin Serum (05/06/23 11:21) Protime With Inr (05/06/23 11:21) Partial Thromboplastin Time (05/06/23 11:21) O2 (05/06/23 11:21) Monitor-Rhythm Ecg Trace Only (05/06/23 11:21) Lipid Panel (05/07/23 06:00) Ed Iv/Invasive Line Start (05/06/23 11:21) Troponin I Heather (05/06/23 11:21) Enoxaparin Injection (Enoxaparin Injecti (05/06/23 12:30) Clopidogrel Tablet (Clopidogrel Tablet) (05/06/23 12:30) Ed Admission (Communication) (05/06/23 12:32) Medications Given in ED Current Medications Medications Dose Ordered Sig/German Route Start Time Stop Time Status Last Admin Dose Admin Clopidogrel Bisulfate 300 mg ONCE ONCE PO 05/06/23 12:30 05/06/23 12:31 DC 05/06/23 12:31 300 MG Enoxaparin Sodium 70 mg ONCE ONCE SC 05/06/23 12:30 05/06/23 12:31 DC 05/06/23 12:31 70 MG Vital Signs/I&O 05/06/23 11:16 Temp 35.0 Pulse 48 Resp 13 B/P (MAP) 124/72 (89) Pulse Ox 98 O2 Delivery Room Air Progress Progress Note : Time: 12:24 Progress Note Patient seen and evaluated by me. Evaluation today includes "chest pain protocol" to include CBC, Chem-12, magnesium, serum troponin, coag profile, EKG, single view chest x-ray. Pertinent physical exam findings thin elderly appeari ng 87-year-old male very pale almost jaundiced in no acute distress. Vital signs are stable. Heart is regular, lungs are clear. Abdomen is soft, the patient does voluntarily guard on abdominal palpation. No lower extremity edema. No focal neurologic deficits. Differential diagnosis includes acute coronary syndrome, gastroesophageal reflux, aortic dissection, arrhythmia, pneumonia Labs, EKG and chest x-ray independently reviewed and interpreted by me. His CBC is pertinent for a minimally low hemoglobin and hematocrit at 11.2 and 34. Normal platelets. Chem-12 remarkable for mildly elevated glucose at 170. Magnesium is within normal limits. Troponin is undetectable. His EKG shows normal sinus rhythm without ectopy, no ST segment depression, minimal elevation in V2, V3 and V4, likely J-point elevation. Chest x-ray shows no effusion, infiltrate, pneumothorax or widened mediastinum. Patient is treated in the emergency department with a Plavix load of [address] Rodriguez as well as full dose Lovenox. I did discuss the case also with Dr. Leigh on for the hospitalist service. Patient will be admitted observation to the cardiac stepdown unit. Dr. Rodriguez has been to the emergency department to evaluate the patient Initial ECG Impression Date: May 06, 2023 Initial ECG Impression Time: 11:09 Initial ECG Rate: 49 Initial ECG Rhythm: S.Bernard Initial ECG Intervals NV 195 QRS 106 QTc 438 Comment J point ? elevation V2-4; no ST depression; no ectopy Diagnostic Imaging Diagonstic Imaging: Xray Plain Films/CT/US/NM/MRI: chest Comments [facility] [place], [place] NAME: DION GIFFORD [facility] REC#: [id number] PT STATUS: REG ER : 1935 PHYSICIAN: ELSA JANSEN MD ADMIT DATE: 05/06/23/ER Signed Date of Exam:05/06/23 CHEST 1 VIEW, AP/PA ONLY EXAMINATION: Chest 1 view HISTORY: Chest pain. COMPARISON: 01/15/2017. FINDINGS: The lung volumes are normal. No focal consolidation is seen. No large pleural effusion or pneumothorax is seen. The cardiomediastinal silhouette is normal in size and contour. There is calcified aortic atherosclerotic plaque. No acute osseous abnormality is seen. Posterior fusion is seen throughout the thoracic spine. IMPRESSION: 1. No acute pleuroparenchymal process. Dictated by: Dictated on workstation # [id number] Dict: 05/06/23 1133 Trans: 05/06/23 1141 [facility] [id number] Interpreted by: STEPHON SANDERS DO Electronically signed by: STEPHON SANDERS DO 05/06/23 1141 Departure Communication (Admissions) Time/Spoke to Admitting Phy: 12:[address] Leigh on for the hospitalist service, accepts patient to cardiac stepdown Time/Spoke to Consulting Phy: 12:[address] Rodriguez, echo, full dose lovenox and plavix load Impression Primary Impression: Chest pain Qualified Codes: R07.9 - Chest pain, unspecified Disposition: ADMITTED INPATIENT Condition: Stable Admissions Decision to Admit Reason: Admit from ER (General) Decision to Admit/Date: May 06, 2023 Time/Decision to Admit Time: 12:24 Departure-Patient Inst. Referrals: ALEXANDER SIMONS MD (PCP/Family) Primary Care Physician ELSA JANSEN MD May 06, 2023 11:30
[2023-05-06 11:31] LABS: ALBUMIN 3.8 GM/DL (3.2-4.5); CHLORIDE 100 MMOL/L (98-107); POTASSIUM 4.4 MMOL/L (3.6-5.0); SODIUM 136 MMOL/L (135-145)
[2023-05-06 11:32] LABS: CALCIUM 9.2 MG/DL (8.5-10.1); INR 1.1 (0.8-1.4); PROTHROMBIN TIME PATIENT 14.2 SEC (12.2-14.7)
[2023-05-06 11:34] LABS: GLUCOSE 170 MG/DL (70-105); TOTAL PROTEIN 6.8 GM/DL (6.4-8.2)
[2023-05-06 11:35] LABS: BILIRUBIN,TOTAL 0.4 MG/DL (0.1-1.0); CARBON DIOXIDE 26 MMOL/L (21-32)
[2023-05-06 11:37] LABS: ALKALINE PHOSPHATASE 54 U/L (40-136); CREATININE SERUM 1.16 MG/DL (0.60-1.30); GFR ESTIMATED 62
--- NOTE | 2023-05-06 11:37 | Diagnostic Imaging Report ---
EXAMINATION: Chest 1 view HISTORY: Chest pain. COMPARISON: 01/15/2017. FINDINGS: The lung volumes are normal. No focal consolidation is seen. No large pleural effusion or pneumothorax is seen. The cardiomediastinal silhouette is normal in size and contour. There is calcified aortic atherosclerotic plaque. No acute osseous abnormality is seen. Posterior fusion is seen throughout the thoracic spine. IMPRESSION: 1. No acute pleuroparenchymal process. Dictated by: Dictated on workstation # [id number]
[2023-05-06 11:38] LABS: BUN/CREATININE RATIO 25
[2023-05-06 11:40] LABS: ALANINE AMINOTRANSFERASE 17 U/L (0-55)
[2023-05-06] MEDS ORDERED: ENOXAPARIN 80 MG/0.8 ML SYRINGE SC ONE (12:30)
[2023-05-06] MEDS ORDERED: CLOPIDOGREL 300 MG TABLET PO ONE (12:30)
--- NOTE | 2023-05-06 12:56 | Consultation-Cardiology ---
HPI-Cardiology Cardiology Consultation: Date of Consultation 05/06/23 Date of Admission Attending Physician Ulisses Barba MD Admitting Physician Admitting Physician: Daiana Leigh MD Attending Physician: Pily Rodriguez MD Consulting Physician Pily RODRIGUEZ MD HPI: Time Seen by a Provider: 12:30 Chief Complaint: Chest pain This is a 87-year-old gentleman who has diabetes, hypertension and hyperlipidemia and presents with chest pain and diaphoresis. When I saw the patient he did not have any further chest pain and was very comfortable. No other cardiac symptoms. Episode lasted till he was given nitroglycerin. Patient denies active smoking. Family history is noncontributory. Patient had a stress test in 2011 which according to the patient was unremarkable. He does not follow with cardiology. Review of Systems-Cardiology Review of Systems Constitutional: lightheadedness Eyes: no symptoms reported Ears/Nose/Throat: no symptoms reported Respiratory: no symptoms reported Cardiovascular: chest pain, other (Chest pain with diaphoresis.) Gastrointestinal: no symptoms reported Genitourinary: no symptoms reported Musculoskeletal: no symptoms reported Skin: no symptoms reported Psychiatric/Neurological: no symptoms reported Hematologic: no symptoms reported [id number]-[id number] Hx Patient Social History Alcohol Use?: No Pt feels they are or have been: No Immunizations Up To Date Tetanus Booster (TDap): Less than 5yrs Date of Pneumonia Vaccine: Apr 12, 2016 Past Medical History PMH As described under Assessment. Family Medical History Family History: Chest pain Family history: Alzheimer's disease 03 MOTHER, Onset:60 years & older Family history: Cardiovascular disease 03 FATHER (father heart attack at 85) 03 MOTHER (pacemaker at 75) Family history: Hypertension 03 FATHER (80) Myocardial infarction 03 FATHER ( at 85 with heart attack) Allergies and Home Medications Allergies Coded Allergies: No Known Drug Allergies (Unverified , 09/08/11) Patient Home Medication List Home Medication List Reviewed: Yes Alpha Lipoic Acid (Alpha-Lipoic Acid) 50 Mg Capsule, 600 MG PO DAILY, (Reported) Entered as Reported by: REESE SANCHEZ on 09/08/11 0905 Last Action: Reviewed Amlodipine Besylate (Amlodipine Besylate) 5 Mg Tablet, 5 MG PO DAILY, (Reported) Entered as Reported by: DAMON CASTANO on 05/06/23 1342 Last Action: New Order Ascorbic Acid (Vitamin C) 100 Mg Tablet, 100 MG PO DAILY, (Reported) Entered as Reported by: TRI SCHULTZ on 12/18/1344 Last Action: Reviewed Atorvastatin Calcium (Atorvastatin Calcium) 10 Mg Tablet, 10 MG PO DAILY, (Reported) Entered as Reported by: DAMON CASTANO on 05/06/231341 Last Action: New Order Biotin (Biotin) 5 Mg Tablet, 5 MG PO DAILY, (Reported) Entered as Reported by: TRI SCHULTZ on 12/18/13741 Last Action: Reviewed Gabapentin (Gabapentin) 600 Mg Tablet, 600 MG PO DAILY, (Reported) Entered as Reported by: DAMON CASTANO on 05/06/231341 Last Action: New Order Insulin Aspart (Novolog) 100 Unit/Ml Susp, 35 UNITS SQ DAILY, (Reported) Entered as Reported by: DAMON CASTANO on 05/06/231341 Last Action: New Order Levothyroxine Sodium (Synthroid) 88 Mcg Tablet, 88 MCG PO DAILY, (Reported) Entered as Reported by: REESE SANCHEZ on 09/08/11904 Last Action: Reviewed Losartan/Hydrochlorothiazide (Losartan-Hctz 100-25 mg Tab) 100 Mg-25 Mg Tablet, 25 MG PO DAILY, (Reported) Entered as Reported by: DAMON CASTANO on 05/06/231341 Last Action: New Order Magnesium (Magnesium Oxide) 200 Mg Tablet, 400 MG PO DAILY, (Reported) Entered as Reported by: REESE SANCHEZ on 09/08/11904 Last Action: Reviewed Metoprolol Tartrate (Metoprolol Tartrate) 25 Mg Tablet, 12.5 MG PO BID, (Reported) Entered as Reported by: DAMON CASTANO on 05/06/231341 Last Action: New Order Multivitamins (Multiple Vitamin) 1 Tab Tablet, 1 TAB PO DAILY, (Reported) Entered as Reported by: REESE SANCHEZ on 09/08/11904 Last Action: Reviewed Pyridoxine/Melatonin (Melatonin 3 Mg Tablet) 1 Tab Tablet, 3 MG PO HS, (Reported) Entered as Reported by: REESE SANCHEZ on 09/08/11904 Last Action: Reviewed Saw Taylor Xtr/Zinc Picolin (Saw Taylor 80 Mg Capsule) 1 Each Capsule, 2 EACH PO DAILY, (Reported) Entered as Reported by: REESE SANCHEZ on 09/08/11904 Last Action: Reviewed Vit B12/Fa/Pyridoxine Hcl/Aa15 (Glycotrol Capsule) 1 Each Capsule, 1 EACH PO, (Reported) Entered as Reported by: TRI SCHULTZ on 12/18/13741 Last Action: Reviewed Zinc Amino Acid Chelate (Zinc) 50 Mg Tablet, 50 MG PO DAILY, (Reported) Entered as Reported by: TRI SCHULTZ on 12/18/13741 Last Action: Reviewed Discontinued Medications Amlodipine/Atorvast Nam (Caduet 10 Mg-10 Mg Tablet) 1 Each Tablet, 1 EACH PO DAILY, (Reported) Discontinued Reason: Duplicate Order Entered as Reported by: REESE SANCHEZ on 09/08/11904 Last Action: Discontinued Aspirin (Aspirin Ec 81 Mg) 81 Mg Tabec, 81 MG PO DAILY, (Reported) Discontinued Reason: No Longer Taking Entered as Reported by: REESE SANCHEZ on 09/08/11904 Last Action: Discontinued Calcium Citrate/Vitamin D3 (Citracal + D Caplet) 1 Each Tablet, 1 EACH PO DAILY, (Reported) Discontinued Reason: No Longer Taking Entered as Reported by: REESE SANCHEZ on 09/08/11904 Last Action: Discontinued Gabapentin (Neurontin) 600 Mg Tablet, 600 MG PO DAILY, (Reported) Discontinued Reason: Duplicate Order Entered as Reported by: REESE SANCHEZ on 09/08/11904 Last Action: Discontinued Glucosamine Sulfate (Glucosamine) 500 Mg Capsule, 500 MG PO DAILY, (Reported) Discontinued Reason: No Longer Taking Entered as Reported by: TRI SCHULTZ on 12/18/13741 Last Action: Discontinued Insulin Human Lispro (Humalog Cartridge) 100 U/Ml Cartridge, 35-40 SQ DAILY, (Reported) Discontinued Reason: Duplicate Order Entered as Reported by: REESE SANCHEZ on 09/08/11904 Last Action: Discontinued Losartan/Hydrochlorothiazide (Losartan-Hctz 100-25 Mg Tab) 1 Each Tablet, 1 EACH PO DAILY, (Reported) Discontinued Reason: Duplicate Order Entered as Reported by: REESE SANCHEZ on 09/08/11904 Last Action: Discontinued Metoprolol Tartrate (Metoprolol Tartrate 50 Mg) 50 Mg Tablet, 50 MG PO DAILY, (Reported) Discontinued Reason: Duplicate Order Entered as Reported by: REESE SANCHEZ on 09/08/11904 Last Action: Discontinued Almira-3 Fatty Acids/Fish Oil (Fish Oil 1,000 Mg Softgel) 1 Each Capsule, 1,000 MG PO DAILY, (Reported) Discontinued Reason: No Longer Taking Entered as Reported by: REESE SANCHEZ on 09/08/11904 Last Action: Discontinued Exam Vital Signs Vital Signs Date Time Temp Pulse Resp B/P (MAP) Pulse Ox O2 Delivery O2 Flow Rate FiO2 05/06/23 13:26 48 17 157/64 (95) 98 Room Air 05/06/23 12:41 35.0 Physical Exam Constitutional: No respiratory distress. Chest: Clear to auscultation bilaterally. CVS: Normal rate and rhythm. No murmur, rub or gallop. Psychiatric: No evidence of depression or anxiety. Neurology: Nonfocal. No significant edema Labs Laboratory Tests Test 05/06/23 11:05 05/06/23 11:15 Range/Units White Blood Count 5.8 4.3-11.0 10^3/uL Red Blood Count 3.61 L 4.30-5.52 10^6/uL Hemoglobin 11.2 L 13.3-17.7 g/dL Hematocrit 34 L 40-54 % Mean Corpuscular Volume 95 80-99 fL Mean Corpuscular Hemoglobin 31 25-34 pg Mean Corpuscular Hemoglobin Concent 33 32-36 g/dL Red Cell Distribution Width 13.8 10.0-14.5 % Platelet Count 257 130-400 10^3/uL Mean Platelet Volume 10.0 9.0-12.2 fL Immature Granulocyte % (Auto) 0 % Neutrophils (%) (Auto) 66 42-75 % Lymphocytes (%) (Auto) 23 12-44 % Monocytes (%) (Auto) 8 0-12 % Eosinophils (%) (Auto) 2 0-10 % Basophils (%) (Auto) 1 0-10 % Neutrophils # (Auto) 3.8 1.8-7.8 10^3/uL Lymphocytes # (Auto) 1.3 1.0-4.0 10^3/uL Monocytes # (Auto) 0.5 0.0-1.0 10^3/uL Eosinophils # (Auto) 0.1 0.0-0.3 10^3/uL Basophils # (Auto) 0.0 0.0-0.1 10^3/uL Immature Granulocyte # (Auto) 0.0 0.0-0.1 10^3/uL Prothrombin Time 14.2 12.2-14.7 SEC INR Comment 1.1 0.8-1.4 Activated Partial Thromboplast Time 23 L 24-35 SEC Sodium Level 136 135-145 MMOL/L Potassium Level 4.4 3.6-5.0 MMOL/L Chloride Level 100 98-107 MMOL/L Carbon Dioxide Level 26 21-32 MMOL/L Anion Gap 10 5-14 MMOL/L Blood Urea Nitrogen 29 H 7-18 MG/DL Creatinine 1.16 0.60-1.30 MG/DL Estimat Glomerular Filtration Rate 62 BUN/Creatinine Ratio 25 Glucose Level 170 H 70-105 MG/DL Calcium Level 9.2 8.5-10.1 MG/DL Corrected Calcium 9.4 8.5-10.1 MG/DL Magnesium Level 2.0 1.6-2.4 MG/DL Total Bilirubin 0.4 0.1-1.0 MG/DL Aspartate Amino Transf (AST/SGOT) 14 5-34 U/L Alanine Aminotransferase (ALT/SGPT) 17 0-55 U/L Alkaline Phosphatase 54 40-136 U/L Myoglobin 102.5 H 10.0-92.0 NG/ML Troponin I < 0.028 <0.028 NG/ML Total Protein 6.8 6.4-8.2 GM/DL Albumin 3.8 3.2-4.5 GM/DL Glucometer 147 H 70-110 MG/DL ECG Impression ECG Initial ECG Rhythm: Normal Sinus A/P-Cardiology Assessment/Admission Diagnosis Unstable angina/acute coronary syndrome Diabetes, Hypertension, Hyperlipidemia Plan This is a 87-year-old gentleman with numerous cardiac risk factors presents with chest pain and diaphoresis. Very typical for unstable angina. First troponin is negative. Myoglobin is mildly positive. EKG shows possible J-point elevation in lead V2, V3. Patient is chest pain-free and very comfortable. I discussed at length with the patient if his second troponin is negative he will at least require a nuclear stress test. However I believe that coronary angiography is recommended. When I discussed with him about coronary angiography he was very hesitant. I did convince him to stay till tomorrow. I have discussed with the RN, we will keep him n.p.o. after midnight. Bolus aspirin, bolus Plavix and full dose Lovenox was given. Pily RODRIGUEZ MD May 06, 2023 12:56
[2023-05-06] MEDS ORDERED: ANTACID SUSPENSION 30 ML UDC PO PRN (13:00)
[2023-05-06] MEDS ORDERED: MILK OF MAGNESIA 400 MG/5 ML 30 ML UDC PO PRN (13:00)
[2023-05-06] MEDS ORDERED: ONDANSETRON INJECTION 4 MG/2 ML (SDV) IV PRN (13:00)
[2023-05-06] MEDS ORDERED: BISACODYL 10 MG SUPPOSITORY PR PRN (13:00)
[2023-05-06] MEDS ORDERED: CALCIUM CARBONATE 500 MG CHEW TABLET PO PRN (13:00)
[2023-05-06] MEDS ORDERED: LACTULOSE SYRUP 10GM/15ML 30ML UDC PO PRN (13:00)
[2023-05-06] MEDS ORDERED: MELATONIN 3 MG TABLET PO PRN (13:00)
[2023-05-06] MEDS ORDERED: ONDANSETRON 4 MG ORAL DISSOLVE TABLET PO PRN (13:00)
[2023-05-06] MEDS ORDERED: ACETAMINOPHEN 325 MG TABLET PO PRN (13:00)
[2023-05-06 13:26] VITALS: BP 157/64
[2023-05-06] MEDS ORDERED: AMLO-250 PO (13:42)
[2023-05-06] MEDS ORDERED: METO-333 PO (13:42)
[2023-05-06] MEDS ORDERED: INSU100V16 SQ (13:42)
[2023-05-06] MEDS ORDERED: ATOR10TA66 PO (13:42)
[2023-05-06] MEDS ORDERED: LOSA1TAB23 PO (13:42)
[2023-05-06] MEDS ORDERED: GBPN600T PO (13:42)
[2023-05-06] MEDS: ENOXAPARIN 80 MG/0.8 ML SYRINGE SC SCH (15:00)
--- NOTE | 2023-05-06 15:30 | Tele-ICU Progress Note ---
Progress Note Video assessment done , Hemodynamically stable Available charting reviewed, discussed with RN 87M:- Stable Chest Pain seen by cards - aspirin, bolus Plavix and full dose Lovenox , possible angio tomorrow NO TELE-ICU CONSULT REQUESTED CONTINUE TO MONITOR PER USUAL TELE-ICU PROTOCOL No need for Tele-ICU interventions Plans as delineated by bedside physicians / consultants Focused Exam Height, Weight, BMI Height: 6'0" Weight: 170lbs. oz. 77.454298ya; 20.00 BMI Method:Estimated GEM KAHN MD May 06, 2023 15:30
[2023-05-06 15:57] VITALS: BP 145/59
[2023-05-06] MEDS: inSUlin ASPART 1 UNIT/0.01 ML (PER UNIT) SC SCH ×2 (16:00→20:37)
[2023-05-06 19:48] VITALS: BP 158/69
[2023-05-06] MEDS: DOCUSATE SODIUM 100 MG CAPSULE PO SCH (20:37)
[2023-05-06] MEDS: SENNOSIDES 8.6 MG TABLET PO SCH (20:37)
[2023-05-06 23:57] VITALS: BP 150/95
[2023-05-07] MEDS: ENOXAPARIN 80 MG/0.8 ML SYRINGE SC SCH (03:20)
[2023-05-07 03:28] VITALS: BP 158/83
[2023-05-07] MEDS: inSUlin ASPART 1 UNIT/0.01 ML (PER UNIT) SC SCH ×2 (04:30→12:54)
[2023-05-07 05:25] LABS: BASOPHILS % (AUTO) 1 % (0-10); EOSINOPHILS # (AUTO) 0.2 10^3/uL (0.0-0.3); EOSINOPHILS % (AUTO) 2 % (0-10); HEMATOCRIT 33 % (40-54); HEMOGLOBIN 11.3 g/dL (13.3-17.7); LYMPHOCYTES # (AUTO) 1.2 10^3/uL (1.0-4.0); LYMPHOCYTES % (AUTO) 15 % (12-44); MEAN CORPUSCULAR HEMOGLOBIN 31 pg (25-34); MEAN CORPUSCULAR HGB CONC 34 g/dL (32-36); MEAN CORPUSCULAR VOLUME 91 fL (80-99); MEAN PLATELET VOLUME 9.9 fL (9.0-12.2); MONOCYTES # (AUTO) 0.7 10^3/uL (0.0-1.0); MONOCYTES % (AUTO) 9 % (0-12); NEUTROPHILS # (AUTO) 5.9 10^3/uL (1.8-7.8); NEUTROPHILS % (AUTO) 73 % (42-75); PLATELET COUNT 234 10^3/uL (130-400)
[2023-05-07 05:42] LABS: CHOLESTEROL 179 MG/DL (< 200); HDL CHOLESTEROL 55 MG/DL (40-60); TRIGLYCERIDES 69 MG/DL (<150); VLDL CHOLESTEROL 14 MG/DL (5-40)
[2023-05-07 07:40] VITALS: BP 174/81
[2023-05-07 07:45] LABS: CHLORIDE 99 MMOL/L (98-107); POTASSIUM 4.6 MMOL/L (3.6-5.0); SODIUM 134 MMOL/L (135-145)
[2023-05-07 07:46] LABS: GLUCOSE 225 MG/DL (70-105)
[2023-05-07 07:48] LABS: CARBON DIOXIDE 24 MMOL/L (21-32)
[2023-05-07 07:50] LABS: CREATININE SERUM 1.09 MG/DL (0.60-1.30); GFR ESTIMATED 67
[2023-05-07 07:51] LABS: BUN/CREATININE RATIO 25
[2023-05-07] MEDS ORDERED: ASPIRIN 81 MG CHEWABLE TABLET PO SCH (09:00)
[2023-05-07] MEDS ORDERED: CLOPIDOGREL 75 MG TABLET PO SCH (09:00)
--- NOTE | 2023-05-07 09:38 | Cardiology Progress Note ---
Subjective Date Seen by Provider: May 07, 2023 Time Seen by Provider: 09:36 Subjective/Events-last exam Patient was seen at bedside, laying down comfortably, denied any active chest pain. No shortness of breath. Objective-Cardiology Exam Last Set of Vital Signs Vital Signs 05/07/23 07:40 Temp 36.6 Pulse 66 Resp 14 B/P (MAP) 174/81 (112) Pulse Ox 97 O2 Delivery Room Air I&O Intake and Output 05/07/23 00:00 Intake Total 600 ml Output Total 150 ml Balance 450 ml Intake Oral 450 ml IV Total 150 ml Output Urine Total 150 ml # Voids 1 General: Alert, Oriented X3, Cooperative HEENT: Atraumatic, PERRLA Neck: Supple, No JVD, No Thyromegaly Lungs: Clear to Auscultation, Normal Air Movement Heart: Regular Rate, Normal S1, Normal S2, No Murmurs Abdomen: Normal Bowel Sounds, Soft, No Tenderness, No Hepatosplenomegaly, No Masses Extremities: No Clubbing, No Cyanosis, No Edema, Normal Pulses, No Tenderness/Swelling Skin: No Rashes, No Breakdown, No Significant Lesion Neuro: Normal Gait, Normal Speech, Strength at 5/5 X4 Ext, Normal Tone, Sensation Intact Psych/Mental Status: Mental Status NL, Mood NL Results Lab Laboratory Tests 05/06/23 11:05 05/07/23 04:58 05/07/23 05:48 A/P-Cardiology Admission Diagnosis Chest pain Coronary artery disease Hypertension Hyperlipidemia Assessment/Plan Chest pain nonspecific etiology, resembling angina EKG did not show any acute abnormality with left ventricular hypertrophy pattern and early repolarization. Cardiac enzymes were negative Currently chest pain-free Planning to evaluate stress test and echocardiogram today. Coronary artery disease, multiple risk factors for coronary artery disease Continue to monitor Hypertension, monitor blood pressure Hyperlipidemia, monitor lipids Diabetes mellitus, managed by primary care team Hypothyroidism, followed by primary care physician JONN GEORGE MD May 07, 2023 09:38
[2023-05-07] MEDS ORDERED: REGADENOSON 0.4 MG/5 ML SYR IV ONE ×2 (11:34→12:00)
--- NOTE | 2023-05-07 11:49 | History & Physical-Hospitalist ---
History of Present Illness HPI/Chief Complaint Patient is an 87-year-old male with past medical history of insulin- dependent diabetes, hypertension, hyperlipidemia who presented to the emergency department due to sudden onset of substernal chest pain. This was accompanied with shortness of breath and diaphoresis. He reports he was quite hazy during this time and does not remember a lot of it but that EMS was summoned and brought him to the emergency department. He was given 4 baby aspirin and nitro by EMS and his symptoms resolved completely. He does not believe he had any nausea or radiation with this. He has had no further chest pain since he arrived. He has seen Dr. Parks in the past and has had a stress test that he reports was negative. His troponin was negative but given his symptoms and risk factors he was admitted for further management. Dr. Brenner had seen patient yesterday and recommended at least a stress test. Patient reports he is anxious to go home as he feels better. Source: patient Date Seen 05/07/23 Time Seen by a Provider: 08:30 Attending Physician Ulisses Barba MD PCP Admitting Physician: Daiana Leigh MD Attending Physician: Pily Rodriguez MD Referring Physician Date of Admission May 06, 2023 at 12:48 Home Medications & Allergies Home Medications Reviewed patient Home Medication Reconciliation performed by pharmacy medication reconciliations game technician and/or nursing. Patients Allergies have been reviewed. Allergies Allergies Coded Allergies No Known Drug Allergies (Unverified09/08/11) Past Fissctn-Dnvssu-Bxerxz Hx Patient Social History Marrital Status: Tobacco Use?: No Use of E-Cig and/or Vaping dev: No Substance use?: No Alcohol Use?: No Pt feels they are or have been: No Immunizations Up To Date Hepatitis A: No Hepatitis B: No PED Vaccines UTD: No Date of Pneumonia Vaccine: Apr 12, 2016 Seasonal Allergies Seasonal Allergies: No Current Status Communicates: Verbally Primary Language: Korean Preferred Spoken Language: Korean Sensory deficits: Vision impairment Implanted or Applied Medical D: None Past Medical History Surgeries: Orthopedic, Tonsillectomy Hypertension Sexually Transmitted Disease: No Diabetes, Insulin dep, Hypothyroidsim Cataract Blood Disorders: No Adverse Reaction/Blood Tranf: No Family Medical History Reviewed Nursing Family Hx Chest pain Family history: Alzheimer's disease 03 MOTHER, Onset:60 years & older Family history: Cardiovascular disease 03 FATHER (father heart attack at 85) 03 MOTHER (pacemaker at 75) Family history: Hypertension 03 FATHER (80) Myocardial infarction 03 FATHER ( at 85 with heart attack) CAD Over 55 Years Old, Hypertension Review of Systems Constitutional: see HPI Physical Exam Physical Exam Vital Signs Vital Signs - First Documented 05/06/23 11:16 Temp 35.0 Pulse 48 Resp 13 B/P (MAP) 124/72 (89) Pulse Ox 98 O2 Delivery Room Air Capillary Refill : Height, Weight, BMI Height: 6'0" Weight: 170lbs. oz. 77.022687ub; 20.22 BMI Method:Estimated General Appearance: No Apparent Distress, WD/WN, Thin Respiratory: Lungs Clear, No Respiratory Distress Cardiovascular: Regular Rate, Rhythm, No Murmur Gastrointestinal: Normal Bowel Sounds, Soft Extremity: No Calf Tenderness, No Pedal Edema Neurologic/Psychiatric: Alert, Oriented x3 Results Results/Procedures Labs Laboratory Tests 05/06/23 11:05 05/07/23 04:58 05/07/23 05:48 Patient resulted labs reviewed. Imaging: Reviewed Imaging Report [facility] [place] [place] NAME: DION [facility]ORD [facility] REC#: [id number] PT STATUS: REG ER : 1935 PHYSICIAN: ELSA JANSEN MD ADMIT DATE: 05/06/23/ER Signed Date of Exam:05/06/23 CHEST 1 VIEW, AP/PA ONLY EXAMINATION: Chest 1 view HISTORY: Chest pain. COMPARISON: 01/15/2017. FINDINGS: The lung volumes are normal. No focal consolidation is seen. No large pleural effusion or pneumothorax is seen. The cardiomediastinal silhouette is normal in size and contour. There is calcified aortic atherosclerotic plaque. No acute osseous abnormality is seen. Posterior fusion is seen throughout the thoracic spine. IMPRESSION: 1. No acute pleuroparenchymal process. Dictated by: Dictated on workstation # [id number] Dict: 05/06/23 1133 Trans: 05/06/23 1141 [facility] [id number] Interpreted by: STEPHON SANDERS DO Electronically signed by: STEPHON SANDERS DO 05/06/23 1141 Assessment/Plan Admission Diagnosis Chest pain Admission Status: Observation Assessment and Plan Chest pain Concering for angina Cardiology consulted, appreciate recs Trops negative Stress and echo today Telemetry IDDMI BS was 225 this AM SSI HTN HLD Continue home meds Clinical Quality Measures AMI/AHF: ASA po Prior to arrival: Yes ALEXEI HUFF MD May 07, 2023 11:49
[2023-05-07 11:51] VITALS: BP 150/78
[2023-05-07] MEDS: SENNOSIDES 8.6 MG TABLET PO SCH (12:54)
[2023-05-07] MEDS: DOCUSATE SODIUM 100 MG CAPSULE PO SCH (12:55)
[2023-05-07 12:58] VITALS: BP 189/86
--- NOTE | 2023-05-07 13:57 | Cardiology Stress Test Report ---
Stress Test Report Date of Procedure/Referring: Date of Procedure: May 07, 2023 PCP Ulisses Barba MD Admitting Physician Admitting Physician: Daiana Leigh MD Attending Physician: Pily Rodriguez MD Indications: CP Baseline Blood Pressure: Blood Pressure Systolic: 189 Blood Pressure Diastolic: 86 Baseline Vitals Vital Signs Date Time Temp Pulse Resp B/P (MAP) Pulse Ox O2 Delivery O2 Flow Rate FiO2 05/06/23 11:16 35.0 48 13 124/72 (89) 98 Room Air Baseline EKG: Baseline EKG: NSR Summary After explaining the procedure to the patient, he signed a consent and then brought to the stress nuclear laboratory. Patient received 0.4 mg Lexiscan for stress test, ECG, heart rate and blood pressure were monitored continuously. Resting and stress dose of radio tracer were injected, imaging was acquired and reviewed in short axis, horizontal long axis and vertical long axis views. TID: 1.04 SSS: 1 SDS: 1 EF: 52 Patient tolerated Lexiscan well Diaphragmatic attenuation with no significant ischemia or infarction on SPECT images Normal left ventricular size, ejection fraction 52% JONN GEORGE MD May 07, 2023 13:57
--- NOTE | 2023-05-07 13:59 | Discharge Inst-Simple/Standard ---
Discharge Inst-Standard Patient Instructions/Follow Up Plan of Care/Instructions/FU: Please continue to take your medications as written. Please follow up with your primary care doctor to follow up this hospital stay. Activity as Tolerated: Yes Discharge Diet: No Restrictions, Cardiac Diet Return to The Hospital For: Chest pain, shortness of breath, fever, weakness, if you feel you are getting worse. ALEXEI HUFF MD May 07, 2023 13:59
[2023-05-07] MEDS ORDERED: ASPI81TA64 PO (14:00)
[2023-05-07] MEDS ORDERED: LOSARTAN 100 MG TABLET PO NR (14:30)
[2023-05-07] MEDS ORDERED: amLODIPine 5 MG TABLET PO NR (14:30)
[2023-05-07 15:01] VITALS: BP 152/86
--- NOTE | 2023-05-08 16:14 | Physician Query-Final Dx ---
Samra Mcdonald 05/08/23 1614: Final Diagnosis Give Final Diagnosis Please give Final Diagnosis ALEXEI HUFF MD 05/10/23 1504: Final Diagnosis Give Final Diagnosis Chest pain Samra Mcdonald May 08, 2023 16:14 ALEXEI HUFF MD May 10, 2023 15:04
== END 2023-05-07 15:10 | disposition home or self-care (01) ==
LOC: EDUNIT# 10:59 → ER 11:00 → ICU 12:48 → CSD 18:11
PROVIDERS: ADMIT Internal Medicine; ATTEND Internal Medicine Interventional Cardiology
DX: E11.9 Type 2 diabetes mellitus without complications (principal); E78.5 Hyperlipidemia, unspecified; I10 Essential (primary) hypertension; I25.10 Atherosclerotic heart disease of native coronary artery without angina pectoris; E03.9 Hypothyroidism, unspecified; Z79.890 Hormone replacement therapy
CPT/HCPCS: 71045; 78452; 80048; 80053; 80061; 82947; 83735; 83874; 84484 ×2; 85025 ×2; 85610; 85730; 93005; 93017; 93041; 96372 ×2; 99284; A9502; C8929; G0378 ×2; 36415; 93306

== ENCOUNTER 2023-05-08 09:46 | Inpatient (IN) | payer MEDICARE ==
[~2023-05-08] VITALS: Ht 182.9 cm; Wt 72.7 kg
[~2023-05-08 09:46] MED LIST changes: +AMLO-250 PO; +ASPI81TA64 PO; +ATOR10TA66 PO; +GBPN600T PO; +INSU100V16 SQ; +METO-333 PO
--- NOTE | 2023-05-08 10:19 | ED General ---
General Chief Complaint: General Problems/Pain Stated Complaint: WEAKNESS | TIRED | SOB Nursing Triage Note: PT DISCHARGED FROM THE HOSPTIAL YESTERDAY FROM A BOUT OF CHEST PAIN. PT STATES HE STARTED TO FEEL BAD AGAIN AFTER HE ATE LAST NIGHT. PT FEELS WEAK AND SOB. Source of Information: Patient Exam Limitations: No Limitations History of Present Illness Date Seen by Provider: May 08, 2023 Time Seen by Provider: 10:19 Initial Comments Edouard is an 87-year-old male who presents to the emergency room with a chief complaint of generalized weakness, shaking chills. I admitted him 48 hours ago after an episode while standing and charts of epigastric and chest tightness with profuse diaphoresis. He underwent cardiac evaluation, stress testing which was negative. He had an echocardiogram which showed normal EF. Patient was dismissed yesterday. Last night he states he went to bed late evening woke up in the middle the night with severe lower abdominal pain. He got up vomited. He states later in the morning he woke up, disoriented and realized he was on the floor. He has no recollection of falling or syncopal episode. He continues to feel generally weak. He states that he chilled and was very cold all night long. He denies shortness of breath, productive cough. No abdominal pain currently. He is no longer nauseated. He denies dysuria, urgency or frequency. He had a normal bowel movement yesterday. He lives alone. He is an insulin- dependent diabetic. Timing/Duration: Other (earlier during the night) Severity: Severe Associated Systoms: Nausea/Vomiting, Weakness, Other (lower abdominal pain) Allergies and Home Medications Allergies Coded Allergies: No Known Drug Allergies (Unverified , 09/08/11) Patient Home Medication List Home Medication List Reviewed: Yes Amlodipine Besylate (Amlodipine Besylate) 5 Mg Tablet, 5 MG PO HS, (Reported) Entered as Reported by: DAMON CASTANO on 05/06/23 1342 Last Action: Reviewed Ascorbic Acid (Ascorbic Acid) 500 Mg Tablet, 500 MG PO DAILY, (Reported) Entered as Reported by: OLIVIA VIVAS on 05/09/23 1327 Last Action: Reviewed Aspirin (Children's Aspirin) 81 Mg Tab.chew, 81 MG PO DAILY Prescribed by: ALEXEI MONTGOMERY on 05/07/23 1400 Last Action: Reviewed Atorvastatin Calcium (Atorvastatin Calcium) 10 Mg Tablet, 10 MG PO HS, (Reported) Entered as Reported by: DAMON CASTANO on 05/06/231341 Last Action: Reviewed Cholecalciferol (Vitamin D3) (Vitamin D3) 50 Mcg (2000 Unit) Tablet, 50 MCG PO DAILY, (Reported) Entered as Reported by: OLIVIA VIVAS on 05/09/231326 Last Action: Reviewed Cyanocobalamin (Vitamin B-12) (Vitamin B-12) 500 Mcg Tablet, 500 MCG PO DAILY, (Reported) Entered as Reported by: OLIVIA VIVAS on 05/09/231326 Last Action: Reviewed Gabapentin (Gabapentin) 600 Mg Tablet, 600 MG PO HS, (Reported) Entered as Reported by: DAMNO CASTANO on 05/06/231341 Last Action: Reviewed Insulin Aspart (Novolog) 100 Unit/Ml Susp, UNITS SQ UD, (Reported) Entered as Reported by: DAMON CASTANO on 05/06/231341 Last Action: Reviewed Lactobacillus Acidophilus (Probiotic) 10 Billion Cell Capsule, 1 EACH PO DAILY, (Reported) Entered as Reported by: OLIVIA VIVAS on 05/09/231327 Last Action: Reviewed Levothyroxine Sodium (Synthroid) 88 Mcg Tablet, 88 MCG PO DAILY, (Reported) Entered as Reported by: OLIVIA VIVAS on 05/09/231326 Last Action: Reviewed Melatonin (Melatonin) 10 Mg Tablet, 10 MG PO HS, (Reported) Entered as Reported by: OLIVIA VIVAS on 05/09/231326 Last Action: Reviewed Metoprolol Tartrate (Metoprolol Tartrate) 25 Mg Tablet, 12.5 MG PO BID, (Rep orted) Entered as Reported by: DAMON CASTANO on 05/06/231341 Last Action: Reviewed Zinc Sulfate (Zinc) 50 Mg Zinc (220 Mg) Tablet, 50 MG PO DAILY, (Reported) Entered as Reported by: OLIVIA VIVAS on 05/09/231326 Last Action: Reviewed Discontinued Medications Alpha Lipoic Acid (Alpha-Lipoic Acid) 50 Mg Capsule, 600 MG PO DAILY, (Reported) Discontinued Reason: No Longer Taking Entered as Reported by: REESE SANCHEZ on 09/08/11 0905 Last Action: Discontinued Ascorbic Acid (Vitamin C) 100 Mg Tablet, 100 MG PO DAILY, (Reported) Discontinued Reason: Prescription changed Entered as Reported by: TRI SCHULTZ on 12/18/13743 Last Action: Held Biotin (Biotin) 5 Mg Tablet, 5 MG PO DAILY, (Reported) Discontinued Reason: No Longer Taking Entered as Reported by: TRI SCHULTZ on 12/18/13741 Last Action: Discontinued Levothyroxine Sodium (Synthroid) 88 Mcg Tablet, 88 MCG PO DAILY, (Reported) Discontinued Reason: No Longer Taking Entered as Reported by: REESE SANCHEZ on 09/08/11904 Last Action: Discontinued Losartan/Hydrochlorothiazide (Losartan-Hctz 100-25 mg Tab) 100 Mg-25 Mg Tablet, 1 EA PO DAILY, (Reported) Entered as Reported by: DAMON CASTANO on 05/06/23 1342 Last Action: Reviewed Magnesium (Magnesium Oxide) 200 Mg Tablet, 400 MG PO DAILY, (Reported) Discontinued Reason: No Longer Taking Entered as Reported by: REESE SANCHEZ on 09/08/11904 Last Action: Discontinued Multivitamins (Multiple Vitamin) 1 Tab Tablet, 1 TAB PO DAILY, (Reported) Discontinued Reason: No Longer Taking Entered as Reported by: REESE SANCHEZ on 09/08/11904 Last Action: Discontinued Pyridoxine/Melatonin (Melatonin 3 Mg Tablet) 1 Tab Tablet, 3 MG PO HS, (Reported) Discontinued Reason: No Longer Taking Entered as Reported by: REESE SANCHEZ on 09/08/11904 Last Action: Discontinued Saw Anthon Xtr/Zinc Picolin (Saw Anthon 80 Mg Capsule) 1 Each Capsule, 2 EACH PO DAILY, (Reported) Discontinued Reason: No Longer Taking Entered as Reported by: REESE SANCHEZ on 09/08/11904 Last Action: Discontinued Vit B12/Fa/Pyridoxine Hcl/Aa15 (Glycotrol Capsule) 1 Each Capsule, 1 EACH PO, (Reported) Discontinued Reason: No Longer Taking Entered as Reported by: TRI SCHULTZ on 12/18/13741 Last Action: Discontinued Zinc Amino Acid Chelate (Zinc) 50 Mg Tablet, 50 MG PO DAILY, (Reported) Discontinued Reason: No Longer Taking Entered as Reported by: TRI SCHULTZ on 12/18/13741 Last Action: Discontinued Review of Systems Review of Systems Constitutional: see HPI, chills, diaphoresis, malaise, weakness EENTM: no symptoms reported Respiratory: no symptoms reported Cardiovascular: no symptoms reported Gastrointestinal: abdominal pain, nausea, vomiting Genitourinary: no symptoms reported Musculoskeletal: no symptoms reported Skin: no symptoms reported Psychiatric/Neurological: No Symptoms Reported Past Iwuoqdm-Dqcaxl-Xacgqi Hx Patient Social History Tobacco Use?: No Use of E-Cig and/or Vaping dev: No Substance use?: No Alcohol Use?: No Pt feels they are or have been: No Immunizations Up To Date Tetanus Booster (TDap): Less than 5yrs PED Vaccines UTD: No Influenza Vaccine Up-to-Date: No; Not Current Seasonal Allergies Seasonal Allergies: No Past Medical History Surgery/Hospitalization HX: TONSILS HTN Surgeries: Yes (HERNIA, RT SHOULDER, TOES) Orthopedic, Tonsillectomy Respiratory: No Cardiac: Yes Hypertension Neurological: No Reproductive Disorders: No Sexually Transmitted Disease: No Genitourinary: No Gastrointestinal: No Musculoskeletal: No Endocrine: Yes (INSULIN PUMP) Diabetes, Insulin dep, Hypothyroidsim Cataract Cancer: No Psychosocial: No Integumentary: No Blood Disorders: No Adverse Reaction/Blood Tranf: No Family Medical History Chest pain Family history: Alzheimer's disease 03 MOTHER, Onset:60 years & older Family history: Cardiovascular disease 03 FATHER (father heart attack at 85) 03 MOTHER (pacemaker at 75) Family history: Hypertension 03 FATHER (80) Myocardial infarction 03 FATHER ( at 85 with heart attack) CAD Over 55 Years Old, Hypertension Physical Exam Vital Signs Capillary Refill : Height, Weight, BMI Height: 6'0" Weight: 170lbs. oz. 77.492106xg; 20.00 BMI Method:Estimated General Appearance: Thin Eyes: Bilateral Eye Normal Inspection, Bilateral Eye PERRL, Bilateral Eye EOMI HEENT: PERRL/EOMI, Pharynx Normal Respiratory: Lungs Clear, Normal Breath Sounds, No Accessory Muscle Use, No Respiratory Distress Cardiovascular: Regular Rate, Rhythm Gastrointestinal: Other (muscular abdomen - no reproducible tenderness) Focused Exam Lactate Level 05/08/23 12:19: Lactic Acid Level 1.61 Lactic Acid Level Laboratory Tests Test 05/08/23 12:19 Lactic Acid Level 1.61 MMOL/L (0.50-2.00) Progress/Results/Core Measures Suspected Sepsis SIRS Temperature: Pulse: 84 Respiratory Rate: 24 Laboratory Tests 05/08/23 10:54: White Blood Count 17.7H Blood Pressure 137 /96 Mean: 110 05/08/23 12:19: Lactic Acid Level 1.61 Laboratory Tests 05/08/23 10:35: Creatinine 2.23H, Total Bilirubin 0.8 05/08/23 10:54: Platelet Count 233 Results/Orders Lab Results Laboratory Tests Test 05/08/23 09:56 05/08/23 10:35 05/08/23 10:54 05/08/23 12:08 Range/Units Glucometer 351 H 70-110 MG/DL Sodium Level 134 L 135-145 MMOL/L Potassium Level 5.2 H 3.6-5.0 MMOL/L Chloride Level 95 L 98-107 MMOL/L Carbon Dioxide Level 23 21-32 MMOL/L Anion Gap 16 H 5-14 MMOL/L Blood Urea Nitrogen 42 H 7-18 MG/DL Creatinine 2.23 H 0.60-1.30 MG/DL Estimat Glomerular Filtration Rate 28 BUN/Creatinine Ratio 19 Glucose Level 382 H 70-105 MG/DL Calcium Level 9.3 8.5-10.1 MG/DL Corrected Calcium 9.5 8.5-10.1 MG/DL Total Bilirubin 0.8 0.1-1.0 MG/DL Aspartate Amino Transf (AST/SGOT) 27 5-34 U/L Alanine Aminotransferase (ALT/SGPT) 18 0-55 U/L Alkaline Phosphatase 51 40-136 U/L Total Protein 6.9 6.4-8.2 GM/DL Albumin 3.8 3.2-4.5 GM/DL Lipase 36 8-78 U/L White Blood Count 17.7 H 4.3-11.0 10^3/uL Red Blood Count 3.61 L 4.30-5.52 10^6/uL Hemoglobin 11.2 L 13.3-17.7 g/dL Hematocrit 33 L 40-54 % Mean Corpuscular Volume 91 80-99 fL Mean Corpuscular Hemoglobin 31 25-34 pg Mean Corpuscular Hemoglobin Concent 34 32-36 g/dL Red Cell Distribution Width 13.7 10.0-14.5 % Platelet Count 233 130-400 10^3/uL Mean Platelet Volume 10.3 9.0-12.2 fL Immature Granulocyte % (Auto) 1 % Neutrophils (%) (Auto) 93 H 42-75 % Lymphocytes (%) (Auto) 2 L 12-44 % Monocytes (%) (Auto) 5 0-12 % Eosinophils (%) (Auto) 0 0-10 % Basophils (%) (Auto) 0 0-10 % Neutrophils # (Auto) 16.4 H 1.8-7.8 10^3/uL Lymphocytes # (Auto) 0.3 L 1.0-4.0 10^3/uL Monocytes # (Auto) 0.9 0.0-1.0 10^3/uL Eosinophils # (Auto) 0.0 0.0-0.3 10^3/uL Basophils # (Auto) 0.0 0.0-0.1 10^3/uL Immature Granulocyte # (Auto) 0.1 0.0-0.1 10^3/uL Neutrophils % (Manual) 84 % Lymphocytes % (Manual) 2 % Monocytes % (Manual) 6 % Eosinophils % (Manual) 0 % Basophils % (Manual) 0 % Band Neutrophils 8 % Blood Morphology Comment NORMAL Influenza Type A (RT-PCR) Not Detected Not Detecte Influenza Type B (RT-PCR) Not Detected Not Detecte SARS-CoV-2 RNA (RT-PCR) Not Detected Not Detecte Test 05/08/23 12:19 05/08/23 13:51 05/08/23 13:57 Range/Units Lactic Acid Level 1.61 0.50-2.00 MMOL/L Urine Color YELLOW Urine Clarity CLEAR Urine pH 6.0 5-9 Urine Specific Warren 1.025 H 1.016-1.022 Urine Protein 2+ H NEGATIVE Urine Glucose (UA) 2+ H NEGATIVE Urine Ketones 1+ H NEGATIVE Urine Nitrite NEGATIVE NEGATIVE Urine Bilirubin NEGATIVE NEGATIVE Urine Urobilinogen 0.2 < = 1.0 MG/DL Urine Leukocyte Esterase NEGATIVE NEGATIVE Urine RBC (Auto) TRACE H NEGATIVE Urine RBC 0-2 /HPF Urine WBC 0-2 /HPF Urine Squamous Epithelial Cells 2-5 /HPF Urine Crystals NONE /LPF Urine Bacteria FEW H /HPF Urine Casts NONE /LPF Urine Mucus MODERATE H /LPF Urine Culture Indicated YES Lab Scanned Report Referred Lab Report [id number] Micro Results Microbiology 05/08/23 Urine Culture - Final, Complete Gram Pos Mixed Bacterial Inessa 05/08/23 Blood Culture - Final, Complete 05/08/23 Blood Culture - Final, Complete My Orders Orders - ELSA JANSEN MD Ed Iv/Invasive Line Start (05/08/23 10:34) Cbc And Automated Diff (05/08/23 10:34) Comprehensive Metabolic Panel (05/08/23 10:34) Ua Culture If Indicated (05/08/23 10:34) Lipase (05/08/23 10:34) Ns Iv 1000 Ml (Ns Iv 1000 Ml) (05/08/23 10:45) Manual Differential (05/08/23 10:54) Covid 19 Inhouse Test (05/08/23 12:01) Influenza A And B By Pcr (05/08/23 12:01) Blood Culture (05/08/23 12:01) Ed Iv/Invasive Line Start (05/08/23 12:01) Ed Iv/Invasive Line Start (05/08/23 12:01) Vital Signs Adult Sepsis Patie Q15M (05/08/23 12:01) O2 (05/08/23 12:01) Remove Rings In Anticipation O (05/08/23 12:01) Lactic Acid Analyzer (05/08/23 12:01) Ns Iv 1000 Ml (Ns Iv 1000 Ml) (05/08/23 12:02) Ct Abdomen/Pelvis Wo (05/08/23 12:08) Vital Signs/I&O Capillary Refill : Blood Pressure Mean: 110 Progress Note : Time: 12:54 Progress Note Patient seen and evaluated by me. Evaluation today includes history and physical exam with CBC, Chem-12, blood cultures, lactic acid, COVID, influenza testing. Pertinent physical exam findings thin elderly appearing male in no acute distress. Heart is regular, not tachycardic, lungs are clear, abdomen demonstrates voluntary guarding, muscular anterior abdominal wall, no involuntary guarding. He is slightly tender in the lower abdomen. No lower e xtremity edema. No focal neurologic findings. Differential diagnosis includes sepsis, bowel obstruction, enteritis Labs independently reviewed and interpreted by me. His CBC shows a leukocytosis of 17.7 with 93% segmented neutrophils. Hemoglobin of 11.2, hematocrit of 33, platelets of 233. His lactic acid is less than 2 at 1.61. Chemistry remarkable for sodium of 134, slightly elevated potassium at 5.2. BUN elevated at 42, creatinine elevated at 2.23. Glucose is elevated on the chemistry at 382, be dside is 351. COVID and flu are negative. Patient is afebrile, not tachycardic. He is treated with a liter of normal saline. Secondary to significant increase in leukocytosis from admit 48 hours ago and acute kidney injury Case was discussed with Dr. Bettencourt, hospitalist admissions representative. She requested CT of the abdomen and pelvis on admission. A second liter was ordered of normal saline. He has no concerning findings on physical examination for acute surgical process. He will need to be admitted for the HUMERA and for further evaluation, investigation into bacterial source of symptoms. Patient is comfortable with the plan of care as his his friend who is at the bedside with him. All questions are sought and answered Departure Communication (Admissions) Time/Spoke to Admitting Phy: 12:[address] Montgomery - Hospitalist Impression Primary Impression: HUMERA (acute kidney injury) Additional Impression: Abdominal pain Qualified Codes: R10.30 - Lower abdominal pain, unspecified Disposition: ADMITTED INPATIENT Condition: Stable Admissions Decision to Admit Reason: Admit from ER (General) Decision to Admit/Date: May 08, 2023 Time/Decision to Admit Time: 12:54 Departure-Patient Inst. Referrals: ALEXANDER SIMONS MD (PCP/Family) Primary Care Physician Copy Copies To 1: ALEXANDER SIMONS MD, KATHRYN M MD May 08, 2023 10:19
[2023-05-08] MEDS ORDERED: NS IV 1000 ML 1,000 ML IV SCH (10:45)
[2023-05-08 10:46] LABS: ALBUMIN 3.8 GM/DL (3.2-4.5)
[2023-05-08 10:48] LABS: CALCIUM 9.3 MG/DL (8.5-10.1)
[2023-05-08 10:49] LABS: TOTAL PROTEIN 6.9 GM/DL (6.4-8.2)
[2023-05-08 10:51] LABS: BILIRUBIN,TOTAL 0.8 MG/DL (0.1-1.0)
[2023-05-08 10:53] LABS: CREATININE SERUM 2.23 MG/DL (0.60-1.30)
[2023-05-08 10:59] LABS: POTASSIUM 5.2 MMOL/L (3.6-5.0)
[2023-05-08 11:01] LABS: BASOPHILS % (AUTO) 0 % (0-10); EOSINOPHILS % (AUTO) 0 % (0-10); HEMATOCRIT 33 % (40-54); HEMOGLOBIN 11.2 g/dL (13.3-17.7); LYMPHOCYTES # (AUTO) 0.3 10^3/uL (1.0-4.0); LYMPHOCYTES % (AUTO) 2 % (12-44); MEAN CORPUSCULAR HEMOGLOBIN 31 pg (25-34); MEAN CORPUSCULAR HGB CONC 34 g/dL (32-36); MEAN CORPUSCULAR VOLUME 91 fL (80-99); MEAN PLATELET VOLUME 10.3 fL (9.0-12.2); MONOCYTES # (AUTO) 0.9 10^3/uL (0.0-1.0); MONOCYTES % (AUTO) 5 % (0-12); NEUTROPHILS # (AUTO) 16.4 10^3/uL (1.8-7.8); NEUTROPHILS % (AUTO) 93 % (42-75); PLATELET COUNT 233 10^3/uL (130-400); WHITE BLOOD COUNT 17.7 10^3/uL (4.3-11.0)
[2023-05-08 11:33] LABS: BAND NEUTROPHILS 8 %; BASOPHILS % (MANUAL) 0 %; EOSINOPHILS % (MANUAL) 0 %; LYMPHOCYTES % (MANUAL) 2 %; MONOCYTES % (MANUAL) 6 %; NEUTROPHILS % (MANUAL) 84 %
[2023-05-08 11:34] LABS: RBC MORPH NORMAL
[2023-05-08] MEDS ORDERED: NS IV 1000 ML 1,000 ML IV STA (12:02)
--- NOTE | 2023-05-08 13:07 | Diagnostic Imaging Report ---
PROCEDURE: CT abdomen and pelvis without contrast. TECHNIQUE: Multiple contiguous axial images were obtained through the abdomen and pelvis without the use of intravenous contrast. Auto Exposure Controls were utilized during the CT exam to meet ALARA standards for radiation dose reduction. INDICATION: Abdominal pain, nausea, vomiting, shaking chills. COMPARISON: Exam is compared with contrast-assisted study 04/26/2020. 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 No radiodense urinary tract calculus. Left kidney is unremarkable and stable. No biliary dilatation. No gallstone. Spleen is unremarkable. The adrenals and pancreas are nonacute. The atherosclerotic aorta is nonaneurysmal. There is an IVC filter in stable position. No abscess, hematoma, or acute fluid collection. There is no free air or pneumatosis. No segmental small or large bowel wall thickening. No perienteric or pericolonic edema is found. I am unable to identify the appendix. There are postsurgical changes to the right lower abdominal wall, chronic. No acute appearing abdominal wall pathology. The bony structures are nonacute. There are some nonspecific interstitial infiltrates in the right greater than left lower lobes. No basilar pleural fluid. IMPRESSION: 1. 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 This is stable. No visible stone. 2. No ascites or acute fluid collection. No focal inflammatory process identified in the abdomen or pelvis. 3. Right greater than left nonspecific lower lobe interstitial type infiltrates. Dictated by: Dictated on workstation # [id number]
--- NOTE | 2023-05-08 13:42 | History & Physical-Hospitalist ---
History of Present Illness HPI/Chief Complaint Patient is an 87-year-old male with past medical history of insulin- dependent diabetes type 2, chronic abdominal pain, hypertension, hyperlipidemia who presented to the emergency department due to abdominal pain and weakness. He was just discharged from this hospital yesterday after chest pain work-up was negative. He underwent stress test but no cath yesterday. He went out to eat with his friend yesterday evening at [facility] and ate nachos which is typical for him. He reports he had no issues with indigestion or anything following this but throughout the night he started to develop severe abdominal pain and vomited profusely around 3 AM. He then went to bed and slept for a little bit and when he woke up he was on the floor and was too weak to get up. He called his friend over to help him. She helped get him the floor and back into bed where he slept for little bit longer. She reports she cleaned up the vomit and it was totally undigested. He woke up and still felt so weak that he decided to seek evaluation in the emergency department. He was found to have an HUMERA mild hyperkalemia with a leukocytosis. He is being admitted for further work up. 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 He is unsure if he has had a gastric emptying study or gallbladder ultrasound. Source: patient Date Seen 05/08/23 Time Seen by a Provider: 13:37 Attending Physician Ulisses Barba MD PCP Admitting Physician: Attending Physician: Referring Physician Date of Admission Home Medications & Allergies Home Medications Reviewed patient Home Medication Reconciliation performed by pharmacy medication reconciliations optomechanical technician and/or nursing. Patients Allergies have been reviewed. Allergies Allergies Coded Allergies No Known Drug Allergies (Unverified09/08/11) Past Ptbnudi-Vezrqz-Lycwzy Hx Patient Social History Tobacco Use?: No Use of E-Cig and/or Vaping dev: No Substance use?: No Alcohol Use?: No Pt feels they are or have been: No Immunizations Up To Date Hepatitis A: No Hepatitis B: No PED Vaccines UTD: No Date of Pneumonia Vaccine: Apr 12, 2016 Seasonal Allergies Seasonal Allergies: No Current Status Advance Directives: No Communicates: Verbally Primary Language: Belarusian Preferred Spoken Language: Belarusian Is interpretation needed?: No Sensory deficits: Vision impairment Past Medical History Surgeries: Orthopedic, Tonsillectomy Hypertension Sexually Transmitted Disease: No Diabetes, Insulin dep, Hypothyroidsim Cataract Blood Disorders: No Adverse Reaction/Blood Tranf: No Family Medical History Chest pain Family history: Alzheimer's disease 03 MOTHER, Onset:60 years & older Family history: Cardiovascular disease 03 FATHER (father heart attack at 85) 03 MOTHER (pacemaker at 75) Family history: Hypertension 03 FATHER (80) Myocardial infarction 03 FATHER ( at 85 with heart attack) CAD Over 55 Years Old, Hypertension Review of Systems Constitutional: see HPI Physical Exam Physical Exam Vital Signs Vital Signs - First Documented 05/08/23 05/08/23 09:54 14:23 Temp 35.6 Pulse 84 Resp 24 B/P (MAP) 137/96 (110) Pulse Ox 97 O2 Delivery Room Air Capillary Refill : Height, Weight, BMI Height: 6'0" Weight: 170lbs. oz. 77.020477ey; 20.00 BMI Method:Estimated General Appearance: No Apparent Distress, Thin, Other (ill appearing) Respiratory: Lungs Clear, No Respiratory Distress Cardiovascular: Regular Rate, Rhythm, No Murmur Gastrointestinal: Normal Bowel Sounds, Soft Neurologic/Psychiatric: Alert, Oriented x3 Results Results/Procedures Labs Laboratory Tests 05/08/23 10:35 05/08/23 10:54 05/09/23 05:10 Patient resulted labs reviewed. Assessment/Plan Admission Diagnosis HUMERA Admission Status: Inpatient Order (span 2 midnights) Reason for Inpatient Admission: see below Assessment and Plan HUMERA Vomiting and abd pain Continue IVF Long history of intermittant abd pain/diarrhea/constipation Spoke to Dr Jewell's office to get records CT Abd/pelvis If not done previously consider CTA abd/pevlis tomorrow if creatinine amenable to that May be coincidentaly with recent workup for chest pain but will monitor on telemetry as well Spoke with Dr Barba and updated IDDMI BS was 382 on arrival Not in DKA SSI Resume home insulin when med rec done HTN HLD Continue home meds as appropriate DVT ppx: Lovenox Diagnosis/Problems Diagnosis/Problems (1) Insulin dependent diabetes mellitus (2) Hyperlipidemia (3) Hypertension (4) HUMERA (acute kidney injury) (5) Abdominal pain Status: Acute Qualifiers: Abdominal location: lower abdomen, unspecified Qualified Codes: R10.30 - Lower abdominal pain, unspecified (6) Chest pain ALEXEI HUFF MD May 08, 2023 13:42
[2023-05-08] MEDS ORDERED: MELATONIN 3 MG TABLET PO PRN (13:45)
[2023-05-08] MEDS ORDERED: BISACODYL 10 MG SUPPOSITORY PR PRN (13:45)
[2023-05-08] MEDS ORDERED: ONDANSETRON INJECTION 4 MG/2 ML (SDV) IV PRN (13:45)
[2023-05-08] MEDS ORDERED: ACETAMINOPHEN 325 MG TABLET PO PRN (13:45)
[2023-05-08] MEDS ORDERED: CALCIUM CARBONATE 500 MG CHEW TABLET PO PRN (13:45)
[2023-05-08] MEDS ORDERED: ANTACID SUSPENSION 30 ML UDC PO PRN (13:45)
[2023-05-08 14:07] LABS: BACTERIA,URINE FEW /HPF; BILIRUBIN,URINE NEGATIVE (NEGATIVE); CLARITY,URINE CLEAR; COLOR,URINE YELLOW; GLUCOSE, URINE (UA) 2+ (NEGATIVE); KETONES,URINE 1+ (NEGATIVE); LEUKOCYTE ESTERASE ,URINE NEGATIVE (NEGATIVE); NITRITE,URINE NEGATIVE (NEGATIVE); PROTEIN,URINE 2+ (NEGATIVE); RBC,URINE 0-2 /HPF; WBC,URINE 0-2 /HPF
[2023-05-08 14:23] VITALS: BP 109/61
[2023-05-08] MEDS ORDERED: ENOXAPARIN 30 MG/0.3 ML SYRINGE SC SCH (15:00)
[2023-05-08] MEDS: NS IV 1000 ML 1,000 ML IV SCH ×2 (15:13→20:30)
[2023-05-08 15:51] VITALS: BP 102/55
[2023-05-08] MEDS: inSUlin ASPART 1 UNIT/0.01 ML (PER UNIT) SC SCH ×2 (16:49→20:15)
[2023-05-08 19:39] VITALS: BP 106/56
[2023-05-08] MEDS ORDERED: inSUlin DETERMIR 1 UNIT/0.01 ML (CHARGE PER UNIT) SQ ONE (20:27)
[2023-05-08] MEDS: MELATONIN 3 MG TABLET PO SCH (20:29)
[2023-05-08] MEDS ORDERED: inSUlin DETERMIR 1 UNIT/0.01 ML (CHARGE PER UNIT) SQ SCH (21:00)
[2023-05-09] VITALS (7 sets, daily range): BP systolic 107–174; BP diastolic 55–73
[2023-05-09] MEDS: NS IV 1000 ML 1,000 ML IV SCH ×3 (00:01→20:38)
[2023-05-09] MEDS: LEVOTHYROXINE 88 MCG TABLET PO SCH (05:15)
[2023-05-09 05:31] LABS: HEMATOCRIT 27 % (40-54); MEAN CORPUSCULAR HEMOGLOBIN 31 pg (25-34); MEAN CORPUSCULAR HGB CONC 34 g/dL (32-36); MEAN CORPUSCULAR VOLUME 92 fL (80-99); MEAN PLATELET VOLUME 10.1 fL (9.0-12.2); PLATELET COUNT 190 10^3/uL (130-400); WHITE BLOOD COUNT 11.2 10^3/uL (4.3-11.0)
[2023-05-09] MEDS ORDERED: DEXTROSE 50% 50 ML (IMS) SYR ONE (05:35)
[2023-05-09] MEDS: inSUlin ASPART 1 UNIT/0.01 ML (PER UNIT) SC SCH ×4 (05:38→20:33)
[2023-05-09] MEDS ORDERED: DEXTROSE 50% 50 ML (IMS) SYR IV ONE (05:45)
[2023-05-09 05:49] LABS: CALCIUM 8.6 MG/DL (8.5-10.1); CREATININE SERUM 1.12 MG/DL (0.60-1.30); POTASSIUM 3.8 MMOL/L (3.6-5.0)
[2023-05-09] MEDS: D5 1/2 NS 1,000 ML IV 1,000 ML IV SCH ×2 (08:20→20:38)
[2023-05-09] MEDS ORDERED: GABAPENTIN 600 MG TABLET PO SCH (09:00)
--- NOTE | 2023-05-09 11:43 | Occ Therapy Progress Note ---
Therapy Progress Note Patient out of room for procedure, OT to evaluate next available opportunity JOSE FIELDS OT May 09, 2023 11:43
--- NOTE | 2023-05-09 11:52 | Physical Therapy Progress Note ---
Therapy Progress Note Patient out of room for procedure, PT to evaluate next available opportunity LORIN OCASIO PT May 09, 2023 11:52
[2023-05-09] MEDS: ASPIRIN 81 MG CHEWABLE TABLET PO SCH (12:21)
--- NOTE | 2023-05-09 12:30 | Diagnostic Imaging Report ---
INDICATION: 87-year-old male, nausea and vomiting with chronic diarrhea. The patient was administered a solid test meal with 1.06 mCi Tc 99M sulfur colloid used for labeling of the meal. Region of interest curves were drawn over the stomach with the percent of retained activity calculated at hourly timed intervals for a total of 4 hours. A time activity curve was generated. FINDINGS: Percent retention as follows: (percent of administered activity retained within the stomach): 1.0 hour: 31% {<30% = Rapid, >90% = Delayed} 2.0 hour: 8% {>60% = Abnormally Delayed} 3.0 hour: 3% {>30% = Abnormally Delayed} 4.0 hour: 2% {>10% = Abnormally Delayed} Gastric emptying half time is measured at 39.74 minutes IMPRESSION: Rapid gastric emptying. Dictated by: Dictated on workstation # [id number]
[2023-05-09] MEDS ORDERED: CYAN500T8 PO (13:27)
[2023-05-09] MEDS ORDERED: MELA10TA2 PO (13:27)
[2023-05-09] MEDS ORDERED: CHOL200059 PO (13:27)
[2023-05-09] MEDS ORDERED: ASCO500T7 PO (13:27)
[2023-05-09] MEDS ORDERED: LEVO88TA2 PO (13:27)
[2023-05-09] MEDS ORDERED: ZINC220T3 PO (13:27)
[2023-05-09] MEDS ORDERED: LACT1CAP62 PO (13:28)
--- NOTE | 2023-05-09 13:57 | Progress Note - Hospitalist ---
Subjective HPI/CC On Admission Date Seen by Provider: May 09, 2023 Patient is an 87-year-old male with past medical history of insulin- dependent diabetes type 2, chronic abdominal pain, hypertension, hyperlipidemia who presented to the emergency department due to abdominal pain and weakness. He was just discharged from this hospital yesterday after chest pain work-up was negative. He underwent stress test but no cath yesterday. He went out to eat with his friend yesterday evening at [facility] and ate nachos which is typical for him. He reports he had no issues with indigestion or anything following this but throughout the night he started to develop severe abdominal pain and vomited profusely around 3 AM. He then went to bed and slept for a little bit and when he woke up he was on the floor and was too weak to get up. He called his friend over to help him. She helped get him the floor and back into bed where he slept for little bit longer. She reports she cleaned up the vomit and it was totally undigested. He woke up and still felt so weak that he decided to seek evaluation in the emergency department. He was found to have an HUMERA mild hyperkalemia with a leukocytosis. He is being admitted for further work up. 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 He is unsure if he has had a gastric emptying study or gallbladder ultrasound. Subjective/Events-last exam Pt reports doing ok today. No Complaints. No pain. Had gastric emptying sutdy today and it actually showed rapid emptying. Eating well today with no issue. Reviewed his studies from Dr Jewell's office and Dr Bailey's. Multiple scopes, CTs, and trials of different medicines without improvement. Focused Exam Lactate Level 05/08/23 12:19: Lactic Acid Level 1.61 Objective Exam Vital Signs Vital Signs Date Time Temp Pulse Resp B/P (MAP) Pulse Ox O2 Delivery O2 Flow Rate FiO2 05/09/23 07:53 36.8 63 16 148/68 (94) 96 Room Air Capillary Refill : General Appearance: No Apparent Distress Respiratory: Lungs Clear, No Respiratory Distress Cardiovascular: Regular Rate, Rhythm Gastrointestinal: Normal Bowel Sounds, Non Tender, Soft Neurologic/Psychiatric: Alert, Oriented x3 Results/Procedures Lab Laboratory Tests 05/09/23 05:10 Patient resulted labs reviewed. Assessment/Plan Assessment and Plan Assess & Plan/Chief Complaint HUMERA Vomiting and abd pain DC IVF now that he is eating Long history of intermittant abd pain/diarrhea/constipation CT Abd/pelvis without acute findings Spoke with Dr Barba on admission Gastric emptying with rapid emptying actually Gallbladder usg in AM IDDMI BS actually low this AM SSI HTN HLD Continue home meds as appropriate DVT ppx: Lovenox Diagnosis/Problems Diagnosis/Problems (1) Insulin dependent diabetes mellitus (2) Hyperlipidemia (3) Hypertension (4) HUMERA (acute kidney injury) (5) Abdominal pain Status: Acute Qualifiers: Abdominal location: lower abdomen, unspecified Qualified Codes: R10.30 - Lower abdominal pain, unspecified (6) Chest pain ALEXEI HUFF MD May 09, 2023 13:57
--- NOTE | 2023-05-09 14:49 | Physical Therapy Evaluation ---
PT Evaluation-General Medical Diagnosis Admission Date May 08, 2023 at 13:57 Medical Diagnosis: HUMERA Onset Date: May 07, 2023 Therapy Diagnosis Therapy Diagnosis: Gait deficit Height/Weight Height (Feet): 6 Height (Inches): 0 Weight (Pounds): 170 Precautions Precautions/Isolations: Standard Precautions Weight Bear Status Right Lower Extremity: Right Full Weight Bearing Left Lower Extremity: Left Full Weight Bearing Referral Physician: Dr. Montgomery Reason for Referral: Evaluation/Treatment Social History Home: Single Level Current Living Status: Alone Entry Into Home: Stairs With Railing PT Steps Into Home: 3 Prior Prior Level of Function SCALE: Activities may be completed with or without assistive devices. 7-Ydbzczozun-jpswiij completes the activity by him/herself with no assistance from a helper. 5-Set-up or Clean-up Assistance-helper sets up or cleans up; patient completes activity. [place] assists only prior to or following the activity. 4-Supervision or Touching Assistance-helper provides verbal cues and/or touching/steadying and/or contact guard assistance as patient completes activity. Assistance may be provided throughout the activity or intermittently. 3-Partial/Moderate Assistance-helper does LESS THAN HALF the effort. [place] lifts, holds or supports trunk or limbs, but provides less than half the effort. 2-Substantial/Maximal Assistance-helper does MORE THAN HALF the effort. [place] lifts or holds trunk or limbs and provides more than half the effort. 6-Xyijqpooq-obhhvm does ALL the effort. Patient does none of the effort to complete the activity. Or, the assistance of 2 or more helpers is required for the patient to complete the activity. If activity was not attempted, code reason: 7-Patient Refused. 9-Not Applicable-not attempted and the patient did not perform the activity before the current illness, exacerbation or injury. 10-Not Attempted due to Environmental Limitations-(lack of equipment, weather restraints, etc.). 88-Not Attempted due to Medical Conditions or Safety Concerns. Bed Mobility: 6 Transfers (B,C,W/C): 6 Gait: 6 Stairs: 6 Indoor Mobility (Ambulation): Independent Stairs: Independent Prior Devices Use: None PT Evaluation-Current Subjective Patient walking around the room after using the BR upon PT arrival, agreeable to treatment. Patient rates pain at 0/10 currently. Objective Patient Orientation: Person, Place, Time, Situation ROM/Strength ROM Lower Extremities WFLs BLEs all planes Strength Lower Extremities 5/5 BLEs all planes Sensory Vision: Wears Glasses Hearing: Functional Sensation Right Lower Extremit: Intact Sensation Left Lower Extremity: Intact Transfers Roll Left to Right (QC): 6 Sit to Lying (QC): 6 Lying to Sitting/Side of Bed(Q: 6 Sit to Stand (QC): 6 Chair/Skj-sb-Dqgve Xfer(QC): 6 Toilet Transfer (QC): 6 Gait Does the Patient Walk?: Yes Mode of Locomotion: Walk Anticipated Mode of Locomotion: Walk Walk 10 feet (QC): 6 Walk 50 ft with 2 Turns(QC): 6 Walk 150 ft (QC): 6 Distance: 250' Gait Assistive Device: None Stairs #of Steps: 3 1 Step (curb) (QC): 4 Balance Sitting Static: Normal Sitting Dynamic: Normal Standing Static: Normal Standing Dynamic: Normal Assessment/Needs Rehab Potential: Good PT Plan Treatment/Plan Treatment Plan: Discontinue PT Treatment Duration: May 10, 2023 Frequency: Time Time In: 1424 Time Out: 1436 DATE: May 09, 2023 Total Billed Treatment Time: 12 Total Billed Treatment Visit, LORIN SANDERS PT May 09, 2023 14:49
[2023-05-09] MEDS ORDERED: ENOXAPARIN 40 MG/0.4 ML SYRINGE SC SCH (15:00)
[2023-05-09] MEDS: MELATONIN 3 MG TABLET PO SCH (20:31)
[2023-05-10 03:06] VITALS: BP 151/69
[2023-05-10] MEDS: NS IV 1000 ML 1,000 ML IV SCH (05:40)
[2023-05-10] MEDS: inSUlin ASPART 1 UNIT/0.01 ML (PER UNIT) SC SCH ×2 (05:41→11:41)
[2023-05-10] MEDS: LEVOTHYROXINE 88 MCG TABLET PO SCH (05:41)
[2023-05-10 06:12] LABS: HEMATOCRIT 29 % (40-54); HEMOGLOBIN 9.7 g/dL (13.3-17.7); MEAN CORPUSCULAR HEMOGLOBIN 31 pg (25-34); MEAN CORPUSCULAR HGB CONC 33 g/dL (32-36); MEAN CORPUSCULAR VOLUME 92 fL (80-99); MEAN PLATELET VOLUME 10.6 fL (9.0-12.2); PLATELET COUNT 190 10^3/uL (130-400); WHITE BLOOD COUNT 10.2 10^3/uL (4.3-11.0)
[2023-05-10 06:32] LABS: CALCIUM 8.8 MG/DL (8.5-10.1); CREATININE SERUM 0.9 MG/DL (0.60-1.30); POTASSIUM 4.2 MMOL/L (3.6-5.0)
[2023-05-10 08:23] VITALS: BP 147/67
[2023-05-10] MEDS: ASPIRIN 81 MG CHEWABLE TABLET PO SCH (09:10)
--- NOTE | 2023-05-10 09:41 | Diagnostic Imaging Report ---
PROCEDURE: US Abdomen, limited. TECHNIQUE: Multiple realtime grayscale images were obtained over the abdomen in various projections. INDICATION: Diarrhea. Hydronephrosis seen on previous CT COMPARISON: CT dated 05/08/2023 FINDINGS: Liver is normal in size, shape and echogenicity. No suspicious hepatic masses seen. Portal vein shows hepatopetal flow. There is no sonographic evidence of intra or extra hepatic biliary ductal dilatation. Common bile duct measures 5 6 mm in diameter. All bladder is visualized. There is no cholelithiasis, gallbladder wall thickening, nor pericholecystic free fluid. Visualized portions of the head and proximal body of the pancreas unremarkable. Distal body and tail are not well visualized due to overlying bowel gas. Trace ascites is noted. Visualized portions abdominal aorta and IVC are unremarkable. Right kidney measures 13.5 cm in length. There is moderate dilatation of the calyces and profound dilatation of the renal pelvis. This corresponds to appearance on CT from 05/08/2023.. This is also shown to be chronic change when compared to 04/26/2020 No suspicious renal mass is seen IMPRESSION: 1. No cholelithiasis or sonographic evidence of acute cholecystitis. 2. Dilatation right renal collecting system as above. Please note, this appears to be chronic change when compared to 04/26/2020. Correlation with nuclear medicine renal Lasix scan may be of benefit to assess for true obstruction. 3. Trace ascites. Dictated by: Dictated on workstation # [id number]
--- NOTE | 2023-05-10 10:39 | Occupational Therapy Eval ---
OT Evaluation-General/PLF Medical Diagnosis Admission Date May 08, 2023 at 13:57 Medical Diagnosis: HUMERA Onset Date: May 07, 2023 Therapy Diagnosis Therapy Diagnosis: unsteady gait, weakness Height/Weight Height (Feet): 6 Height (Inches): 0 Weight (Pounds): 170 Precautions Precautions/Isolations: Standard Precautions Weight Bear Status Weight Bearing Restriction: Full Weight Bearing Location Restriction: LE Bilateral Referral Physician: Dr. Montgomery Referral Reason: Self Care, Evaluation/Treatment Medical History Additional Medical History 87-year-old male with past medical history of insulin-dependent diabetes type 2, chronic abdominal pain, hypertension, hyperlipidemia who presented to the emergency department due to abdominal pain and weakness. He was just discharged from this hospital yesterday after chest pain work-up was negative. He underwent stress test but no cath yesterday. He went out to eat with his friend yesterday evening at [facility] and ate nachos which is typical for him. He reports he had no issues with indigestion or anything following this but throughout the night he started to develop severe abdominal pain and vomited profusely around 3 AM. He then went to bed and slept for a little bit and when he woke up he was on the floor and was too weak to get up. He called his friend over to help him. She helped get him the floor and back into bed where he slept for little bit longer. She reports she cleaned up the vomit and it was totally undigested. He woke up and still felt so weak that he decided to seek evaluation in the emergency department. He was found to have an HUMERA mild hyperkalemia with a leukocytosis. He is being admitted for further work up. 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 He is unsure if he has had a gastric emptying study or gallbladder ultrasound. Current History UP with OT today and reports a little dizziness w/ standing ADLs. NO assisting device used. Social History Home: Single Level Current Living Status: Alone Entry Into Home: Stairs With Railing Steps Into Home: 3 ADL-Prior Level of Function SCALE: Activities may be completed with or without assistive devices. 2-Blvzfqvkxo-xwqnowl completes the activity by him/herself with no assistance from a helper. 5-Set-up or Clean-up Assistance-helper sets up or cleans up; patient completes activity. [place] assists only prior to or following the activity. 4-Supervision or Touching Assistance-helper provides verbal cues and/or touching/steadying and/or contact guard assistance as patient completes activity. Assistance may be provided throughout the activity or intermittently. 3-Partial/Moderate Assistance-helper does LESS THAN HALF the effort. [place] lifts, holds or supports trunk or limbs, but provides less than half the effort. 2-Substantial/Maximal Assistance-helper does MORE THAN HALF the effort. [place] lifts or holds trunk or limbs and provides more than half the effort. 3-Hpiuaygfb-jhdzhn does ALL the effort. Patient does none of the effort to complete the activity. Or, the assistance of 2 or more helpers is required for the patient to complete the activity. If activity was not attempted, code reason: 7-Patient Refused. 9-Not Applicable-not attempted and the patient did not perform the activity before the current illness, exacerbation or injury. 10-Not Attempted due to Environmental Limitations-(lack of equipment, weather restraints, etc.). 88-Not Attempted due to Medical Conditions or Safety Concerns. Self Care: Independent Functional Cognition: Independent Drive Self: Yes OT Current Status Subjective First time out of bed this morning, wants to take it slow and easy. Mental Status/Objective Patient Orientation: Person, Place, Time, Situation Attachments: IV Current Glasses/Contacts: Yes Hearing Aids: No Hand Dominance: Right Upper Extremity ROM BUE ROM WFLS Upper Extremity Coordination BUE WFLS FAIR + Upper Extremity Strength 4/5 grossly ADL-Treatment ADL-Current Patient reports significant other will assist w/ meals and transportation as needed Eating (QC): 6 Oral Hygiene (QC): 5 Shower/Bathe Self (QC): 7 Upper Body Dressing (QC): 5 Lower Body Dressing (QC): 5 (jeans) On/Off Footwear (QC): 5 Toileting Hygiene (QC): 5 Education OT Patient Education: Correct positioning, Modified ADL techniques, Progress toward Goal/Update tx plan, Purpose of tx/functional activities, Reviewed precautions, Rehab process, Safety issues, Transfer techniques Teaching Recipient: Patient Teaching Methods: Demonstration, Discussion Response to Teaching: Return Demonstration OT [employer] Teacher Goals Mc[facility] Goals 1=Demonstrate adherence to instructed precautions during ADL tasks. 2=Patient will verbalize/demonstrate understanding of assistive devices/modifications for ADL. 3=Patient will improve strength/tolerance for activity to enable patient to perform ADL's. OT Education/Plan Problem List/Assessment Assessment: No Skilled OT Needs ID'd Discharge Recommendations Plan/Recommendations: Discontinue OT Therapy Discharge Recommendati: Home & Family Treatment Plan/Plan of Care Treatment,Training & Education: Yes (energy conservation and balance safety) Patient would benefit from OT for education, treatment and training to promote independence in ADL's, mobility, safety and/or upper extremity function for ADL's. Plan of Care: OTHER (OT EVAL) Treatment Duration: May 10, 2023 Frequency: 1 time per week Estimated Hrs Per Day: .25 hour per day Rehab Potential: Good Remains in recliner, all needs met, jessica light in reach Time Start Time: 08:30 Stop Time: 08:55 DATE: May 10, 2023 Total Time Billed (hr/min): 25 Billed Treatment Time EVM, ADL 25 min JOSE FIELDS OT May 10, 2023 10:39
--- NOTE | 2023-05-10 11:11 | Discharge Inst-Simple/Standard ---
Discharge Inst-Standard Discharge Medications New, Converted or Re-Newed RX: Transmitted to Pharmacy Patient Instructions/Follow Up Plan of Care/Instructions/FU: Please continue to take your medications as written. Please follow up with your primary care doctor to follow up this hospital stay. Activity as Tolerated: Yes Discharge Diet: ADA Diet Return to The Hospital For: Chest pain, shortness of breath, fever, weakness, if you feel you are getting worse. ALEXEI HUFF MD May 10, 2023 11:11
[2023-05-10 11:53] VITALS: BP 156/70
[2023-05-10] MEDS ORDERED: GABAPENTIN 600 MG TABLET PO SCH (21:00)
== END 2023-05-10 12:22 | disposition home or self-care (01) | DRG 684 ==
LOC: EDUNIT# 09:46 → ER 09:47 → 4TH 13:57
PROVIDERS: ADMIT Family Medicine; ATTEND Family Medicine
DX: N17.9 Acute kidney failure, unspecified (principal); E11.9 Type 2 diabetes mellitus without complications; I10 Essential (primary) hypertension; E78.5 Hyperlipidemia, unspecified; Z79.82 Long term (current) use of aspirin; Z79.4 Long term (current) use of insulin; Z79.899 Other long term (current) drug therapy; E03.9 Hypothyroidism, unspecified; Z11.52 Encounter for screening for COVID-19
CPT/HCPCS: 36415; 74176; 76705; 78264; 80048; 80053; 81000; 82947; 83605; 83690; 85007; 85027; 87040; 87088; 87636; 96360; 96361